=== PATIENT | female | born 1955 | race Caucasian/White ===

== ENCOUNTER → 2016-09-24 | Outpatient (CLI) | payer OTHER ==
--- NOTE | 2016-09-24 12:12 | REPMRS ---
Patient History The patient states she had a clinical breast exam in 07/2016. Patient is postmenopausal. Family history of colorectal cancer in paternal uncle at age 50 or over. Digital Woman Screen Mammo: September 24, 2016 - Exam #: [id number] Bilateral CC and MLO view(s) were taken. Technologist: Camila Dallas Technologist Prior study comparison: July 02, 2015, bilateral digital mammo screening bilat, performed at [facility]. May 22, 2014, bilateral digital mammo screening bilat, performed at [facility]. May 19, 2013, bilateral digital mammo screening bilat, performed at [facility]. FINDINGS: There are scattered fibroglandular densities. There has been no change in the appearance of the mammogram from the prior studies. There is a mild amount of scattered fibroglandular density which is fairly symmetric. There is no interval development of dominant mass, architectural distortion, or clustered microcalcification suggestive of malignancy. ASSESSMENT: BI-RADS/ACR category 1 mammogram. Negative. Recommendation Routine screening mammogram in 1 year (for women over age 40). This mammogram was interpreted with the aid of an FDA-approved computer-aided dectection system. Electronically Signed By: Cheko Ham MD 09/24/16 [id number]
== END ==
LOC: M WHC 11:11
PROVIDERS: ATTEND Nurse Practitioner Adult Health
DX: Z12.31 Encounter for screening mammogram for malignant neoplasm of breast (principal); Z78.0 Asymptomatic menopausal state

== ENCOUNTER → 2017-02-25 | Outpatient (CLI) | payer OTHER ==
[~2017-02-25] MED LIST: CETI10TA; CITA20TA4; CLEO300C2 PO; INVO100T; KETO0.02; METF10004; MONT10TA2; VITA1CAP40
[2017-02-25 10:38] LABS: MEAN CORPUSCULAR HEMOGLOBIN 30.3 pg (27.0-33.0); MEAN CORPUSCULAR HGB CONC 33.7 g/dl (32.0-36.5); MEAN CORPUSCULAR VOLUME 90.1 fl (80.0-96.0); WHITE BLOOD COUNT 4.5 K/mm3 (4.0-10.0)
[2017-02-25 11:12] LABS: ALBUMIN 3.6 GM/DL (3.2-5.2); ALBUMIN/GLOBULIN RATIO 1.13 (1.00-1.93); ALKALINE PHOSPHATASE 126 U/L (45-117); ALT/SGPT 30 U/L (12-78); ANION GAP 6 MEQ/L (8-16); AST/SGOT 26 U/L (15-37); BILIRUBIN,TOTAL 0.4 MG/DL (0.2-1.0); BLOOD UREA NITROGEN 9 MG/DL (7-18); CALCIUM LEVEL 8.8 MG/DL (8.5-10.1); CARBON DIOXIDE LEVEL 31 MEQ/L (21-32); CHLORIDE LEVEL 104 MEQ/L (98-107); CREATININE FOR GFR 0.71 MG/DL (0.55-1.02); GLOMERULAR FILTRATION RATE > 60.0 (>51); GLUCOSE, FASTING 171 MG/DL (70-105); POTASSIUM SERUM 3.8 MEQ/L (3.5-5.1); SODIUM LEVEL 141 MEQ/L (136-145); TOTAL PROTEIN 6.8 GM/DL (6.4-8.2)
== END ==
LOC: M LAB 09:41
PROVIDERS: ATTEND Nurse Practitioner Adult Health
DX: E11.65 Type 2 diabetes mellitus with hyperglycemia (principal); E55.9 Vitamin D deficiency, unspecified

== ENCOUNTER 2017-05-21 15:40 | Emergency (ER) | payer OTHER ==
[~2017-05-21] VITALS: Ht 157.5 cm; Wt 87.7 kg
[2017-05-21] MEDS ORDERED: MONT10TA2 (16:00)
[2017-05-21] MEDS ORDERED: CETI10TA (16:00)
[2017-05-21] MEDS ORDERED: VITA1CAP40 (16:00)
[2017-05-21] MEDS ORDERED: CITA20TA4 (16:00)
[2017-05-21] MEDS ORDERED: KETO0.02 (16:00)
[2017-05-21] MEDS ORDERED: METF10004 (16:00)
[2017-05-21] MEDS ORDERED: INVO100T (16:00)
[2017-05-21] MEDS ORDERED: CLEO300C2 PO (18:08)
--- NOTE | 2017-05-21 18:13 | REP ---
REASON: Pain and swelling. TECHNIQUE: Multiple ultrasonographic images of the deep venous structures of the right thigh were obtained from the common femoral vein to the popliteal vein along with Doppler interrogation and color flow Doppler images. FINDINGS: There is no abnormal echogenic material seen within any of the visualized deep venous structures that would suggest acute thrombosis. Coaptation is unremarkable throughout. Doppler interrogation shows an expected response to respiratory variability and augmentation. The color flow images show what appears to be a normal vascular pattern throughout. IMPRESSION: There is no ultrasonographic evidence of deep venous thrombosis involving any of the visualized deep venous structures of the right thigh, as described above. Signed by Michele Chamberlain DO 05/21/2017 07:18 P
[2017-05-21] MEDS ORDERED: CLINDAMYCIN 150 MG CAP PO ONE (18:15)
[2017-05-21 18:18] VITALS: BP 132/82
== END 2017-05-21 18:19 | disposition home or self-care (01) ==
LOC: M ED 15:40
DX: L03.115 Cellulitis of right lower limb (principal); E11.9 Type 2 diabetes mellitus without complications; F33.9 Major depressive disorder, recurrent, unspecified; Z79.01 Long term (current) use of anticoagulants; Z79.899 Other long term (current) drug therapy; Z91.018 Allergy to other foods; Z91.012 Allergy to eggs

== ENCOUNTER → 2017-08-10 | Outpatient (REF) | payer OTHER ==
[2017-08-10 18:34] LABS: ALBUMIN/GLOBULIN RATIO 1.14 (1.00-1.93); ALKALINE PHOSPHATASE 126 U/L (45-117); ALT/SGPT 30 U/L (12-78); ANION GAP 5 MEQ/L (8-16); AST/SGOT 28 U/L (7-37); BILIRUBIN,TOTAL 0.5 MG/DL (0.2-1.0); BLOOD UREA NITROGEN 11 MG/DL (7-18); CALCIUM LEVEL 8.7 MG/DL (8.5-10.1); CARBON DIOXIDE LEVEL 33 MEQ/L (21-32); CHLORIDE LEVEL 105 MEQ/L (98-107); CHOLESTEROL LEVEL 131 MG/DL (<200); CREATININE FOR GFR 0.78 MG/DL (0.55-1.02); GLOMERULAR FILTRATION RATE > 60.0 (>51); GLUCOSE, FASTING 168 MG/DL (70-105); POTASSIUM SERUM 3.4 MEQ/L (3.5-5.1); SODIUM LEVEL 143 MEQ/L (136-145); TOTAL PROTEIN 7.5 GM/DL (6.4-8.2); TRIGLYCERIDES LEVEL 169 MG/DL (<150)
== END ==
LOC: M SFHCPLAZ 15:00
PROVIDERS: ATTEND Nurse Practitioner Adult Health
DX: Z12.4 Encounter for screening for malignant neoplasm of cervix (principal); I10 Essential (primary) hypertension; E55.9 Vitamin D deficiency, unspecified; E11.65 Type 2 diabetes mellitus with hyperglycemia; E78.4 Other hyperlipidemia

== ENCOUNTER 2017-09-07 13:34 | Outpatient (CLI) | payer OTHER | END 2017-10-04 | LOC: M RAD 13:34 | DX: Z12.31 Encounter for screening mammogram for malignant neoplasm of breast (principal) | CPT/HCPCS: 77067 ==

== ENCOUNTER → 2017-10-06 | Outpatient (REF) | payer OTHER | LOC: M SFHCLERA 18:03 | DX: R50.9 Fever, unspecified (principal) ==

== ENCOUNTER → 2017-12-22 | Outpatient (CLI) | payer OTHER | LOC: M RAD 09:50 | DX: M25.571 Pain in right ankle and joints of right foot (principal) | CPT/HCPCS: 73721 ==

== ENCOUNTER → 2018-01-25 | Outpatient (REF) | payer OTHER ==
[2018-01-25 15:45] LABS: ALBUMIN 3.6 GM/DL (3.2-5.2); ALBUMIN/GLOBULIN RATIO 1.03 (1.00-1.93); ALKALINE PHOSPHATASE 165 U/L (45-117); ALT/SGPT 43 U/L (12-78); ANION GAP 5 MEQ/L (8-16); AST/SGOT 43 U/L (7-37); BILIRUBIN,TOTAL 0.7 MG/DL (0.2-1.0); BLOOD UREA NITROGEN 8 MG/DL (7-18); CALCIUM LEVEL 8.6 MG/DL (8.8-10.2); CARBON DIOXIDE LEVEL 30 MEQ/L (21-32); CHLORIDE LEVEL 106 MEQ/L (98-107); CHOLESTEROL LEVEL 114 MG/DL (<200); CHOLESTEROL RISK RATIO 3.677 (<5); CREATININE FOR GFR 0.67 MG/DL (0.55-1.30); GLOMERULAR FILTRATION RATE > 60.0 (>45); GLUCOSE, FASTING 182 MG/DL (70-100); HDL CHOLESTEROL 31 MG/DL (>40); LDL CHOLESTEROL 47.8 MG/DL (<100); NON-HDL-C 83 MG/DL; POTASSIUM SERUM 4.2 MEQ/L (3.5-5.1); SODIUM LEVEL 141 MEQ/L (136-145); TOTAL PROTEIN 7.1 GM/DL (6.4-8.2); TRIGLYCERIDES LEVEL 176 MG/DL (<150)
[2018-01-25 15:50] LABS: TOTAL 25(OH) VITAMIN D 27.6 NG/ML (30.0-100.0)
[2018-01-25 16:04] LABS: MALB URINE SIEMENS 50.1 MG/L; MAU/CREAT RATIO 9.4 MCG/MG (0.0-30.0)
== END ==
LOC: M SFHCPLAZ 10:51
DX: Z00.00 Encounter for general adult medical examination without abnormal findings (principal); E11.65 Type 2 diabetes mellitus with hyperglycemia; E55.9 Vitamin D deficiency, unspecified; E78.4 Other hyperlipidemia

== ENCOUNTER 2018-03-30 10:05 | Emergency (ER) | payer OTHER ==
[2018-03-30] MEDS: predniSONE 20 MG TAB PO (11:19)
[2018-03-30] MEDS: diphenhydrAMINE 25 MG CAP PO (11:19)
== END 2018-03-30 11:29 | disposition home or self-care (01) ==
LOC: M ED 10:05
DX: L23.9 Allergic contact dermatitis, unspecified cause (principal); L50.9 Urticaria, unspecified; Z79.82 Long term (current) use of aspirin; Z79.84 Long term (current) use of oral hypoglycemic drugs; Z79.899 Other long term (current) drug therapy; Z91.012 Allergy to eggs; Z91.018 Allergy to other foods
CPT/HCPCS: 99283

== ENCOUNTER → 2018-03-31 | Outpatient (REF) | payer OTHER ==
[2018-03-31 12:54] LABS: ESTIMATED AVERAGE GLUCOSE 194 MG/DL (60-110); HEMOGLOBIN A1c 8.4 %
== END ==
LOC: M LABDRAW1 10:07
DX: E11.9 Type 2 diabetes mellitus without complications (principal)
CPT/HCPCS: 83036

== ENCOUNTER → 2018-05-24 | Outpatient (REF) | payer OTHER ==
[2018-05-24 11:14] LABS: HEMATOCRIT 34.6 % (36.0-47.0); HEMOGLOBIN 11.1 g/dl (12.0-15.5); MEAN CORPUSCULAR HGB CONC 32.1 g/dl (32.0-36.5); MEAN CORPUSCULAR VOLUME 93.5 fl (80.0-96.0); PLATELET COUNT, AUTOMATED 103 10^3/uL (150-450); RED CELL DISTRIBUTION WIDTH 13.1 % (11.5-14.5)
[2018-05-24 11:36] LABS: ALBUMIN 3.6 GM/DL (3.2-5.2); ALBUMIN/GLOBULIN RATIO 1.13 (1.00-1.93); ALKALINE PHOSPHATASE 111 U/L (45-117); ALT/SGPT 29 U/L (12-78); ANION GAP 5 MEQ/L (8-16); AST/SGOT 31 U/L (7-37); BILIRUBIN,TOTAL 0.5 MG/DL (0.2-1.0); BLOOD UREA NITROGEN 9 MG/DL (7-18); CALCIUM LEVEL 8.9 MG/DL (8.8-10.2); CARBON DIOXIDE LEVEL 29 MEQ/L (21-32); CHLORIDE LEVEL 108 MEQ/L (98-107); CREATININE FOR GFR 0.74 MG/DL (0.55-1.30); GLOMERULAR FILTRATION RATE > 60.0 (>45); GLUCOSE, FASTING 170 MG/DL (70-100); POTASSIUM SERUM 4.3 MEQ/L (3.5-5.1); SODIUM LEVEL 142 MEQ/L (136-145); TOTAL PROTEIN 6.8 GM/DL (6.4-8.2)
[2018-05-24 11:40] LABS: ESTIMATED AVERAGE GLUCOSE 177 MG/DL (60-110); HEMOGLOBIN A1c 7.8 %
== END ==
LOC: M SFHCPLAZ 08:30
DX: E11.65 Type 2 diabetes mellitus with hyperglycemia (principal); K76.0 Fatty (change of) liver, not elsewhere classified; G47.33 Obstructive sleep apnea (adult) (pediatric)

== ENCOUNTER → 2018-10-11 | Outpatient (REF) | payer OTHER ==
[~2018-10-11] MED LIST changes: +ALOG6.25; +ASPI-222 PO; +BENA25CA4 PO; -CETI10TA; +CETI10TA PO; +CHLO125TA; -CITA20TA4; +CITA20TA4 PO; -METF10004; +METF10004 PO; -MONT10TA2; +MONT10TA2 PO; +NESI12.5 PO; +PRED20TA PO; +SIMV10TA2 PO; -VITA1CAP40; +VITA50005
[2018-10-11 15:43] LABS: HEMOGLOBIN A1c 7.8 %
== END ==
LOC: M LABDRAW1 10:45
PROVIDERS: ATTEND Orthopaedic Surgery
DX: M76.61 Achilles tendinitis, right leg (principal)

== ENCOUNTER → 2018-11-16 | Outpatient (REF) | payer OTHER ==
[~2018-11-16] MED LIST changes: +CHLO25TA PO; -CITA20TA4 PO; +CITA20TA6 PO; +NESI25TA PO; -VITA50005; +VITA50005 PO
[2018-11-16 12:00] LABS: BLOOD UREA NITROGEN 12 MG/DL (7-18); CALCIUM LEVEL 8.8 MG/DL (8.8-10.2); CARBON DIOXIDE LEVEL 28 MEQ/L (21-32); CHLORIDE LEVEL 109 MEQ/L (98-107); CREATININE FOR GFR 0.66 MG/DL (0.55-1.30); GLOMERULAR FILTRATION RATE > 60.0 (>45); GLUCOSE, FASTING 130 MG/DL (70-100); POTASSIUM SERUM 4.1 MEQ/L (3.5-5.1); SODIUM LEVEL 141 MEQ/L (136-145)
[2018-11-16 12:26] LABS: INR 1.08; PROTHROMBIN TIME 14.1 SECONDS (12.1-14.4)
[2018-11-16 12:27] LABS: PARTIAL THROMBOPLASTIN TIME 36.6 SECONDS (25.4-37.6)
[2018-11-16 12:47] LABS: HEMOGLOBIN A1c 7.2 %
[2018-11-16 13:58] LABS: HEMATOCRIT 35.4 % (36.0-47.0); HEMOGLOBIN 11.3 g/dl (12.0-15.5); MEAN CORPUSCULAR HEMOGLOBIN 29.7 pg (27.0-33.0); MEAN CORPUSCULAR HGB CONC 31.9 g/dl (32.0-36.5); MEAN CORPUSCULAR VOLUME 92.9 fl (80.0-96.0); PLATELET COUNT, AUTOMATED 109 10^3/uL (150-450); RED BLOOD COUNT 3.81 10^6/uL (4.00-5.40); WHITE BLOOD COUNT 4.3 10^3/uL (4.0-10.0)
== END ==
LOC: M LABDRAWP 09:11
PROVIDERS: ATTEND Orthopaedic Surgery
DX: Z00.00 Encounter for general adult medical examination without abnormal findings (principal)

== ENCOUNTER 2018-11-28 06:13 | Day surgery (SDC) | payer OTHER ==
[~2018-11-28] VITALS: Ht 157.5 cm; Wt 88.7 kg
[2018-11-28] VITALS (7 sets, daily range): BP systolic 116–134; BP diastolic 56–78
[~2018-11-28 06:13] MED LIST changes: +LIDOCAINE 1% MDV 20ML VIAL SQ PRN; +NS 1,000 ML IV ONE
[2018-11-28] MEDS ORDERED: dexameTHASONE 10 MG/1 ML VIAL PRES.FREE (J1100) ONE (06:14)
[2018-11-28] MEDS ORDERED: LIDOCAINE 1% MDV 20ML VIAL ONE (06:14)
[2018-11-28] MEDS ORDERED: ROPIvacaine 0.5% 30 ML INJECTION (J2795 PER 1MG) ONE (06:14)
[2018-11-28] MEDS ORDERED: ceFAZolin 2 GM/D5W 50 ML IV BAG (J0690 PER 500MG) As Ordered ONE (06:56)
[2018-11-28] MEDS ORDERED: SCOPOLAMINE 1MG TRANSDERMAL PATCH As Ordered ONE (07:00)
[2018-11-28] MEDS ORDERED: ROCURONIUM BROMIDE 50 MG/5 ML VIAL As Ordered ONE (07:13)
[2018-11-28] MEDS ORDERED: PROPOFOL 200 MG/20 ML VIAL As Ordered ONE (07:13)
[2018-11-28] MEDS ORDERED: LIDOCAINE 2% INJ 100 MG/5 ML SDV (FOR ANES.) As Ordered ONE (07:13)
[2018-11-28] MEDS ORDERED: MIDAZOLAM INJ 2 MG/2 ML VIAL (J2250) As Ordered ONE ×2 (07:14→07:21)
[2018-11-28] MEDS ORDERED: fentaNYL 100 MCG/2 ML INJECTION (J3010) As Ordered ONE ×2 (07:14→07:21)
[2018-11-28] MEDS ORDERED: SCOPOLAMINE 1MG TRANSDERMAL PATCH TOP ONE (07:15)
[2018-11-28] MEDS ORDERED: LR 1,000 ML IV ONE (07:15)
[2018-11-28] MEDS ORDERED: MIDAZOLAM INJ 2 MG/2 ML VIAL (J2250) IV ONE (07:45)
[2018-11-28] MEDS ORDERED: fentaNYL 100 MCG/2 ML INJECTION (J3010) IV ONE (07:45)
[2018-11-28] MEDS ORDERED: dexameTHASONE 4 MG/ML 1ML VIAL (J1100) As Ordered ONE (07:49)
[2018-11-28] MEDS ORDERED: ONDANSETRON 4MG/2ML VIAL (J2405) As Ordered ONE (07:49)
[2018-11-28] MEDS: ceFAZolin 2 GM/D5W 50 ML IV BAG (J0690 PER 500MG) IV ONE ×2 (07:55→08:41)
[2018-11-28] MEDS ORDERED: PHENYLEPHRINE INJ 10MG/ML VIAL (J2370) As Ordered ONE (09:09)
[2018-11-28] MEDS ORDERED: NEOSTIGMINE 10 MG/10 ML VIAL (J2710) As Ordered ONE (10:28)
[2018-11-28] MEDS ORDERED: GLYCOPYRROLATE INJ 0.2 MG/ML 2 ML VIAL As Ordered ONE (10:28)
[2018-11-28] MEDS ORDERED: ONDANSETRON 4MG/2ML VIAL (J2405) IV PRN (11:00)
[2018-11-28] MEDS ORDERED: HYDROMORPHONE HCL 0.5 MG/ 0.5 ML SYRINGE (J1170 PER 1) IV PRN (11:00)
[2018-11-28] MEDS ORDERED: PERCOCET 5MG/325MG TAB PO PRN (11:00)
[2018-11-28] MEDS ORDERED: LR 1,000 ML IV SCH (11:00)
[2018-11-28] MEDS ORDERED: fentaNYL 100 MCG/2 ML INJECTION (J3010) IV PRN (11:00)
--- NOTE | 2018-11-28 13:20 | RO ---
DATE OF SURGERY: 11/28/2018 PREOPERATIVE DIAGNOSIS: Right Achilles insertional tendinosis. POSTOPERATIVE DIAGNOSIS: Right Achilles insertional tendinosis. PROCEDURES: 1. Right Achilles debridement. 2. Excision Cali deformity. 3. Repair Achilles tendon. 4. Use of the mini C-arm. SURGEON: Kristel Mcneal MD DIRECTOR [employer]: Bridget Nieves PA-C ANESTHESIA: General endotracheal with popliteal block. ESTIMATED BLOOD LOSS (EBL): 50 mL. TOURNIQUET TIME: 111 minutes. COMPLICATIONS: None. CONDITION: Stable to recovery. IMPLANTS: Arthrex SpeedBridge. 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 She has failed conservative measures and elects for surgical treatment. The risks and benefits of surgery were discussed with the patient in detail and include but are not limited to infection, damage to nerves and blood vessels, continued pain and stiffness, need for additional procedures, tendon rupture. Informed consent was obtained in the office. DESCRIPTION OF PROCEDURE: The patient was met in the preoperative holding area, where the right lower extremity was marked as the correct operative site. She underwent a popliteal nerve block by the anesthesia team. The patient was taken to the operating room (OR), where she underwent general endotracheal anesthesia. She was placed in the prone position. Her bony prominences were well padded. A well-padded tourniquet was placed on the right upper thigh. A chlorhexidine scrub was performed to the right ankle and leg. The right lower extremity was prepped and draped in the normal sterile fashion. An official time-out was held, where the correct patient, operative site, and operative procedure were verified. After time-out was performed, and incision was marked out midline over the Achilles tendon, distally extending over the insertion on the posterior tuberosity of the calcaneus. An Esmarch tourniquet was used to exsanguinate the leg, and the tourniquet was inflated to 250 mmHg. Incision was made with a #15 blade. Dissection was made to the level of the paratenon. The paratenon was incised, and the Achilles tendon was exposed. A midline incision was made with a fresh knife in the Achilles tendon down to its insertion of the tuberosity. It was gently lifted up. There was a fairly large enthesophyte that was excised using an osteotome and rongeur. Following this, using a series of fresh #15 blades, the anterior surface of the Achilles tendon was debrided. There was moderate tendinosis near the insertion, but the midsubstance of the tendon was without any significant tendinosis. I did not have to take more than 50% of the tendon; and thus, it was made not to transfer the flexor hallucis longus (FHL) tendon. After the tendon was debrided, irrigation was performed. The C-arm was used in the lateral view to determine my level of resection for the Cali deformity. This was then excised using a #38 blade and a micro sagittal saw. The tuberosity itself was contoured with a power rasp to make sure there were no sharp edges and that both medially and laterally some bone was removed, as well. When I was happy with the shape and contour of the tuberosity, x-ray was performed, and it appeared I had taken adequate bone. Next, the Achilles Arthrex SpeedBridge was used to reattach the tendon to bone. The four holes for the SpeedBridge were marked out. The first two SwiveLocks were inserted, and the FiberTapes were drawn through both the medial and lateral aspects of the Achilles tendon. I did use a stay suture here to tie the tendon down to reapproximate the tension. Tension was further adjusted with the SpeedBridge through the distal SwiveLocks. This had good tension, and I was satisfied with the repair. There was good bite on all anchors. Following this, 0 Vicryl was used to close the split of the Achilles tendon and further reinforce the insertion itself. Copious irrigation was performed. The paratenon was closed using 3-0 Vicryl, and subcutaneous tissues were closed using 3-0 Vicryl. The skin was closed using 3-0 nylon. A sterile dressing was applied, and the patient was placed into a well-padded splint. She was transferred to the recovery room in a stable condition. PLAN: The patient will be nonweightbearing in the right lower extremity. I will see her back in 1 week for a wound check and cast placement. The cast should be in slight plantar flexion. She will then return at 3 weeks for suture removal. She will need to be nonweightbearing for 6 weeks total. She will be on aspirin for deep venous thrombosis (DVT) prophylaxis.
--- NOTE | 2018-11-28 14:22 | REP ---
Right heel: Single view. History: Right leg Achilles tendonitis. 15 seconds of fluoroscopy time is reported. Findings: A single last image hold fluoroscopically obtained spot radiograph of the calcaneus documents posterior calcaneal osteotomy. No laterality markers visible. Electronically Signed by Matteo Ham MD 11/28/2018 02:15 P
[2018-11-28] MEDS: LR 1,000 ML IV SCH ×2 (15:33→23:30)
[2018-11-28] MEDS: CEPACOL LOZENGE PO PRN (15:33)
[2018-11-28] MEDS ORDERED: POLYVINYL ALCOHOL OPHTH SOLN 15 ML(LIQUITEARS) OU PRN (15:45)
[2018-11-28] MEDS: metFORMIN (GLUCOPHAGE) 1000 MG TABLET PO SCH (17:13)
[2018-11-28] MEDS: oxyCODONE 5MG TAB PO PRN (17:19)
[2018-11-28] MEDS ORDERED: CitaloPRAM (CeleXA) 20 MG TAB PO SCH (21:00)
[2018-11-28] MEDS ORDERED: MONTELUKAST 10 MG TAB PO SCH (21:00)
[2018-11-28] MEDS ORDERED: CETIRIZINE (ZyrTEC) 10 MG TAB PO SCH (21:00)
[2018-11-29 01:34] VITALS: O2SAT 96
[2018-11-29] MEDS: oxyCODONE 5MG TAB PO PRN (01:52)
[2018-11-29 02:00] VITALS: BP 114/62
[2018-11-29 06:00] VITALS: BP 111/62
[2018-11-29] MEDS: metFORMIN (GLUCOPHAGE) 1000 MG TABLET PO SCH (08:00)
[2018-11-29] MEDS: CEPACOL LOZENGE PO PRN (08:00)
[2018-11-29] MEDS ORDERED: ENTER DRUG NAME HERE (PATIENT'S OWN MED) OU SCH (09:00)
[2018-11-29] MEDS ORDERED: SIMVASTATIN 10 MG TAB PO SCH (09:00)
[2018-11-29] MEDS ORDERED: ENTER DRUG NAME HERE (PATIENT'S OWN MED) PO SCH (09:00)
[2018-11-29 09:06] VITALS: O2SAT 97
== END 2018-11-29 12:25 | disposition home or self-care (01) ==
LOC: M SDC 06:13 → M MS5PR 13:55 → M SDC 11-29 12:25
PROVIDERS: ATTEND Orthopaedic Surgery
DX: M76.61 Achilles tendinitis, right leg (principal); E11.65 Type 2 diabetes mellitus with hyperglycemia; F32.9 Major depressive disorder, single episode, unspecified; I49.9 Cardiac arrhythmia, unspecified; E78.49 Other hyperlipidemia; R01.1 Cardiac murmur, unspecified; G47.33 Obstructive sleep apnea (adult) (pediatric); K21.9 Gastro-esophageal reflux disease without esophagitis; I87.2 Venous insufficiency (chronic) (peripheral); F34.1 Dysthymic disorder; K76.0 Fatty (change of) liver, not elsewhere classified; R06.02 Shortness of breath; M15.0 Primary generalized (osteo)arthritis; R06.83 Snoring; E66.9 Obesity, unspecified; Z68.36 Body mass index [BMI] 36.0-36.9, adult; Z91.012 Allergy to eggs; Z91.018 Allergy to other foods; Z91.048 Other nonmedicinal substance allergy status; Z79.899 Other long term (current) drug therapy; Z79.82 Long term (current) use of aspirin; Z79.84 Long term (current) use of oral hypoglycemic drugs; Z78.0 Asymptomatic menopausal state
CPT/HCPCS: 27654; 28118; 76000; 88304; 97161; 97530; C1713; J0690; J1100; J2250; J2370; J2405; J2710; J2795; J3010

== ENCOUNTER → 2020-03-27 | Outpatient (REF) | payer OTHER ==
[~2020-03-27] MED LIST changes: -ASPI-222 PO; +ASPI-527 PO; +AUGM875T28 PO; -LIDOCAINE 1% MDV 20ML VIAL SQ PRN; -MONT10TA2 PO; +MONT10TA4 PO; -NS 1,000 ML IV ONE; -SIMV10TA2 PO; +SIMV10TA21 PO
== END ==
LOC: M LAB REF 13:16
PROVIDERS: ATTEND Ophthalmology
DX: H02.831 Dermatochalasis of right upper eyelid (principal)

== ENCOUNTER → 2020-05-17 | Outpatient (CLI) | payer OTHER ==
[2020-05-17 12:01] LABS: ALBUMIN 3.6 GM/DL (3.2-5.2); ALT/SGPT 31 U/L (12-78); BILIRUBIN,TOTAL 0.9 MG/DL (0.2-1.0); BLOOD UREA NITROGEN 11 MG/DL (7-18); CARBON DIOXIDE LEVEL 29 MEQ/L (21-32); CHLORIDE LEVEL 101 MEQ/L (98-107); CHOLESTEROL LEVEL 142 MG/DL (<200); CHOLESTEROL RISK RATIO 4.057 (<5); CREATININE FOR GFR 0.74 MG/DL (0.55-1.30); GLOMERULAR FILTRATION RATE > 60.0 (>45); GLUCOSE, FASTING 334 MG/DL (70-100); HDL CHOLESTEROL 35 MG/DL (>40); LDL CHOLESTEROL 72 MG/DL (<100); NON-HDL-C 107 MG/DL; SODIUM LEVEL 136 MEQ/L (136-145); TOTAL PROTEIN 7.4 GM/DL (6.4-8.2); TRIGLYCERIDES LEVEL 174 MG/DL (<150)
[2020-05-17 12:06] LABS: TOTAL 25(OH) VITAMIN D 32.5 NG/ML (30.0-100.0)
[2020-05-17 12:15] LABS: MALB URINE SIEMENS 30.9 MG/L; MAU/CREAT RATIO 9.4 MCG/MG (0.0-30.0)
--- NOTE | 2020-05-24 06:38 | ECHO ---
DATE OF PROCEDURE: 05/17/2020 Age: 64 Gender: Female REFERRING PROVIDER: ANAHI Moon PATIENT LOCATION: Outpatient. REASON FOR STUDY: Endocarditis. 2D MEASUREMENTS: IVS 1.1 cm LV 4.5 cm LVPW 0.8 cm LA 3.9 cm Aorta 2.4 cm DOPPLER MEASUREMENT Peak velocity across the aortic valve 1.8 m/s Peak velocity across the LVOT 1.0 m/s Mitral E 0.7 Mitral A 0.8 with a ratio of 0.9 Maximum tricuspid valve velocity 2.3 m/s 2D COMMENTS: 1. Normal left ventricle size, wall thickness, and normal global left ventricle. The estimated left ventricular systolic ejection fraction is 60% to 65%. 2. Normal left atrium. Normal right atrium and right ventricle. 3. The atrial septum appeared to be normal without evidence of defect or shunt. 4. Normal aortic root. 5. No pericardial effusion seen. 6. Minimally calcified aortic valve with normal leaflet excursion. Minimally calcified mitral annulus with normal anterior mitral valve leaflet motion. Normal tricuspid valve. The pulmonic valve and proximal pulmonary artery branches were not well visualized. The inferior vena cava was not well visualized. Doppler detects trace mitral regurgitation, and mild tricuspid regurgitation. The calculated pulmonary artery systolic pressure is about 30 mmHg. Abnormal relaxation pattern was noted across the mitral valve leaflets, as well as the mitral valve annulus consistent with features of grade 1 left ventricular diastolic dysfunction. IMPRESSION: 1. Normal global left ventricular systolic function. There are some features of grade 1 left ventricular diastolic dysfunction manifested by abnormal relaxation. 2. Aortic valve sclerosis with trivial aortic stenosis, but no aortic regurgitation. 3. Mitral valve annulus calcification with trace mitral regurgitation. 4. Mild tricuspid regurgitation with probably mild pulmonary hypertension. 5. No vegetation seen in the transthoracic echocardiogram. MTDD
== END ==
LOC: M CARPUL 10:02
PROVIDERS: ATTEND Nurse Practitioner Adult Health
DX: I08.3 Combined rheumatic disorders of mitral, aortic and tricuspid valves (principal); I27.20 Pulmonary hypertension, unspecified

== ENCOUNTER → 2020-05-29 | Outpatient (CLI) | payer OTHER ==
--- NOTE | 2020-05-30 09:46 | REPMRS ---
Patient History The patient states she has not had a clinical breast exam in over a year. Family history of colorectal cancer at age 50 or over in paternal uncle. Digital Woman Screen Mammo: May 29, 2020 - Exam #: [id number] Bilateral CC and MLO view(s) were taken. Technologist: Alka Pearson, Technologist Prior study comparison: October 04, 2017, bilateral digital mammo screening bilat, performed at [facility]. September 24, 2016, digital woman screen mammo performed at [facility]. July 02, 2015, bilateral digital mammo screening bilat, performed at [facility]. FINDINGS: There are scattered fibroglandular densities. The Volpara volumetric breast density category is:B. There is a stable nodular density in the right breast laterally There has been no change in the appearance of the mammogram from the prior studies. There is a mild amount of scattered fibroglandular density which is fairly symmetric. There is no interval development of dominant mass, architectural distortion, or grouped microcalcification suggestive of malignancy. 3-D tomosynthesis shows no additional findings. Assessment: BI-RADS/ACR category 2 mammogram. Benign Findings. Recommendation Routine screening mammogram of both breasts in 1 year (for women over age 40). This patient's Lifetime Breast Cancer Risk is estimated at 5.8 %. This mammogram was interpreted with the aid of an FDA-approved computer-aided dectection system. Electronically Signed By: Cheko Ham MD 05/30/20 0937
== END ==
LOC: M WHC 15:12
PROVIDERS: ATTEND Nurse Practitioner Adult Health
DX: Z12.31 Encounter for screening mammogram for malignant neoplasm of breast (principal); Z80.0 Family history of malignant neoplasm of digestive organs

== ENCOUNTER → 2020-10-16 | Outpatient (CLI) | payer OTHER ==
[~2020-10-16] MED LIST changes: +MONT10TA10 PO; -MONT10TA4 PO
== END ==
LOC: M LABSMTC 09:48
PROVIDERS: ATTEND Anesthesiology
DX: Z01.812 Encounter for preprocedural laboratory examination (principal); Z20.822 Contact with and (suspected) exposure to COVID-19

== ENCOUNTER 2020-10-21 06:41 | Day surgery (SDC) | payer OTHER ==
[~2020-10-21] VITALS: Ht 157.5 cm; Wt 82.1 kg
[~2020-10-21 06:41] MED LIST changes: +NS 1,000 ML IV ONE
[2020-10-21] MEDS ORDERED: LIDOCAINE 2% 100MG/5ML SDV (FOR ANES.) As Ordered ONE (07:12)
[2020-10-21] MEDS ORDERED: propofoL 200 MG/20 ML VIAL As Ordered ONE (07:12)
--- NOTE | 2020-10-21 07:53 | ROOR ---
Patient Name: Nanda Avila Procedure Date: 10/21/2020 7:34 AM Date of : 1955 Age: 64 Room: [facility] Gender: Female Note Status: Finalized Procedure: Colonoscopy Indications: Screening for colorectal malignant neoplasm Providers: Shane KRAMER MD Referring MD: Lia Wilson NP Requesting Provider: Medicines: Monitored Anesthesia Care Complications: No immediate complications. Procedure: Pre-Anesthesia Assessment: - The heart rate, respiratory rate, oxygen saturations, blood pressure, adequacy of pulmonary ventilation, and response to care were monitored throughout the procedure. The Colonoscope was introduced through the anus and advanced to the terminal ileum, with identification of the appendiceal orifice and IC valve. The colonoscopy was performed without difficulty. The patient tolerated the procedure well. The quality of the bowel preparation was good. Findings: The perianal and digital rectal examinations were normal. A diminutive polyp was found in the splenic flexure. The polyp was removed with a cold snare. Resection and retrieval were complete. The exam was otherwise without abnormality on direct and retroflexion views. Impression: - One diminutive polyp at the splenic flexure, removed with a cold snare. Resected and retrieved. - The examination was otherwise normal on direct and retroflexion views. Recommendation: - Repeat colonoscopy in 5 years for surveillance. Procedure Code(s): --- Professional --- 21441, Colonoscopy, flexible; with removal of tumor(s), polyp(s), or other lesion(s) by snare technique Diagnosis Code(s): --- Professional --- Z12.11, Encounter for screening for malignant neoplasm of colon K63.5, Polyp of colon CPT copyright 2019 [employer]. All rights reserved. The codes documented in this report are preliminary and upon elevator inspector review may be revised to meet current compliance requirements. Shane Kramer MD Shane KRAMER MD 10/21/2020 7:53:50 AM Electronically signed by Shane KRAMER MD Number of Addenda: 0 Note Initiated On: 10/21/2020 7:34 AM Estimated Blood Loss: Estimated blood loss: none.
[2020-10-21 08:16] VITALS: BP 129/66
== END 2020-10-21 08:16 | disposition home or self-care (01) ==
LOC: M OPP 06:41
PROVIDERS: ATTEND Internal Medicine Gastroenterology
DX: Z12.11 Encounter for screening for malignant neoplasm of colon (principal); D12.3 Benign neoplasm of transverse colon; E78.5 Hyperlipidemia, unspecified; E11.9 Type 2 diabetes mellitus without complications; K76.0 Fatty (change of) liver, not elsewhere classified; K21.9 Gastro-esophageal reflux disease without esophagitis; F32.9 Major depressive disorder, single episode, unspecified; Z88.8 Allergy status to other drugs, medicaments and biological substances; Z91.012 Allergy to eggs; Z91.018 Allergy to other foods; Z91.09 Other allergy status, other than to drugs and biological substances; Z79.82 Long term (current) use of aspirin; Z79.84 Long term (current) use of oral hypoglycemic drugs; Z79.899 Other long term (current) drug therapy

== ENCOUNTER → 2021-01-22 | Outpatient (CLI) | payer OTHER ==
[~2021-01-22] MED LIST changes: -NS 1,000 ML IV ONE
[2021-01-22 11:52] LABS: MALB URINE SIEMENS 31.5 MG/L; MAU/CREAT RATIO 10.9 MCG/MG (0.0-30.0)
[2021-01-22 16:26] LABS: ALBUMIN 3.6 GM/DL (3.2-5.2); ALT/SGPT 36 U/L (12-78); BILIRUBIN,TOTAL 0.8 MG/DL (0.2-1.0); BLOOD UREA NITROGEN 10 MG/DL (7-18); CALCIUM LEVEL 9.2 MG/DL (8.8-10.2); CARBON DIOXIDE LEVEL 26 MEQ/L (21-32); CHLORIDE LEVEL 100 MEQ/L (98-107); CHOLESTEROL LEVEL 155 MG/DL (<200); CHOLESTEROL RISK RATIO 4.696 (<5); CREATININE FOR GFR 0.74 MG/DL (0.55-1.30); GLOMERULAR FILTRATION RATE > 60.0 (>45); GLUCOSE, FASTING 333 MG/DL (70-100); HDL CHOLESTEROL 33 MG/DL (>40); LDL CHOLESTEROL 73 MG/DL (<100); NON-HDL-C 122 MG/DL; SODIUM LEVEL 136 MEQ/L (136-145); TOTAL PROTEIN 7.4 GM/DL (6.4-8.2); TRIGLYCERIDES LEVEL 245 MG/DL (<150)
[2021-01-22 20:03] LABS: HEMOGLOBIN A1c 11.8 %
== END ==
LOC: M LAB 09:51
PROVIDERS: ATTEND Nurse Practitioner Adult Health
DX: E11.65 Type 2 diabetes mellitus with hyperglycemia (principal)

== ENCOUNTER → 2021-05-01 | Outpatient (CLI) | payer OTHER ==
[~2021-05-01] MED LIST changes: +ERGO500029 PO
[2021-05-01 19:51] LABS: ALBUMIN 3.5 GM/DL (3.2-5.2); ALT/SGPT 40 U/L (12-78); BILIRUBIN,TOTAL 0.8 MG/DL (0.2-1.0); BLOOD UREA NITROGEN 8 MG/DL (7-18); CALCIUM LEVEL 9.1 MG/DL (8.8-10.2); CARBON DIOXIDE LEVEL 28 MEQ/L (21-32); CHLORIDE LEVEL 99 MEQ/L (98-107); CREATININE FOR GFR 0.84 MG/DL (0.55-1.30); FERRITIN 33 NG/ML (8-252); GLOMERULAR FILTRATION RATE > 60.0 (>45); GLUCOSE, FASTING 351 MG/DL (70-100); HEMOGLOBIN A1c 10.7 %; IRON (FE) 44 UG/DL (50-170); MAU/CREAT RATIO 7.6 MCG/MG (0.0-30.0); PERCENT SATURATION 13.5 % (13.2-45.0); POTASSIUM SERUM 4.2 MEQ/L (3.5-5.1); SODIUM LEVEL 135 MEQ/L (136-145); TOTAL IRON BINDING CAPACITY 326 UG/DL (250-450); TOTAL PROTEIN 6.8 GM/DL (6.4-8.2)
[2021-05-01 19:52] LABS: HEMATOCRIT 37.2 % (36.0-47.0); HEMOGLOBIN 12.4 g/dl (12.0-15.5); MEAN CORPUSCULAR HGB CONC 33.3 g/dl (32.0-36.5); MEAN CORPUSCULAR VOLUME 90.1 fl (80.0-96.0); RED BLOOD COUNT 4.13 10^6/uL (4.00-5.40); WHITE BLOOD COUNT 4.6 10^3/uL (4.0-10.0)
[2021-05-01 20:42] LABS: PLATELET COUNT, AUTOMATED 90 10^3/uL (150-450)
== END ==
LOC: M PLALAB 13:46
PROVIDERS: ATTEND Nurse Practitioner Adult Health
DX: E11.65 Type 2 diabetes mellitus with hyperglycemia (principal); I10 Essential (primary) hypertension; T14.8XXA Other injury of unspecified body region, initial encounter; M54.2 Cervicalgia

== ENCOUNTER → 2021-05-09 | Outpatient (CLI) | payer OTHER ==
--- NOTE | 2021-05-09 09:23 | REP ---
INDICATION: NECK PAIN ON LT SIDE. COMPARISON: None. TECHNIQUE: Real-time sonographic evaluation of thyroid and left neck soft tissues performed. FINDINGS: Both lobes of thyroid are normal in size, right lobe measuring 4.2 x 2.1 x 1.4 cm and left lobe 3.2 x 1.3 x 0.9 cm. Multiple subcentimeter simple cysts are seen bilaterally, the largest on the right 3 mm and the largest on the left also 3 mm. No solid nodule is seen. In the left submandibular region, where there is reportedly pain, no sonographic abnormality is seen. IMPRESSION: Scattered multiple tiny benign cysts throughout both lobes of the thyroid, measuring up to 3 mm in diameter. No sonographic abnormality in the left submandibular region, at the site of pain. <Electronically signed by Kian Turcios > 05/09/21 0906
== END ==
LOC: M RAD 08:42
PROVIDERS: ATTEND Nurse Practitioner Adult Health
DX: M54.2 Cervicalgia (principal)

== ENCOUNTER 2021-07-09 11:03 | Outpatient (CLI) | payer OTHER ==
[~2021-07-09] VITALS: Ht 160 cm; Wt 84.1 kg
[~2021-07-09 11:03] MED LIST changes: +ALBUTEROL 90 MCG/ACT 8GM HFA INHALER INH PRN; +ALBUTEROL SULFATE 2.5 MG/0.5 ML INH NEB SOLN INH PRN; +CASIRIVIMAB (REGN10933) 600 MG, IMDEVIMAB (REGN10987) 600 MG in NS 250 ML IV ONE; +EPINEPHrine INJ 1 MG/ML 1ML AMP IM PRN; -MONT10TA10 PO; +MONT10TA97 PO; +NS 1,000 ML IV SCH; +diphenhydrAMINE 50MG/ML VIAL (J1200) IV PRN; +methylPREDNISolone 125MG 2ML VIAL IV PRN
[2021-07-09 11:37] VITALS: BP 133/64
[2021-07-09 12:07] VITALS: BP 111/58
[2021-07-09 12:37] VITALS: BP 109/55
[2021-07-09 13:37] VITALS: BP 107/59
[2021-08-04] MEDS ORDERED: KETO0.02 OU (13:50)
[2021-08-04] MEDS ORDERED: ALBU8.5H INH (13:50)
[2021-08-04] MEDS ORDERED: ASPI1TAB22 PO (13:50)
[2021-08-04] MEDS ORDERED: NYST1POW9 (13:50)
[2021-08-04] MEDS ORDERED: NASA1SPR NARES (13:50)
[2021-08-04] MEDS ORDERED: POLYOPD OP (13:50)
[2021-08-04] MEDS ORDERED: FLUTISP (13:50)
== END 2021-07-09 13:37 | disposition home or self-care (01) ==
LOC: M OPCLI4PR 11:03
PROVIDERS: ATTEND Nurse Practitioner Adult Health
DX: U07.1 COVID-19 (principal); Z88.6 Allergy status to analgesic agent; Z91.012 Allergy to eggs; Z91.048 Other nonmedicinal substance allergy status

== ENCOUNTER 2021-07-15 16:30 | Emergency (ER) | payer OTHER ==
[~2021-07-15] VITALS: Ht 158.8 cm; Wt 83.0 kg
[~2021-07-15 16:30] MED LIST changes: -ALBUTEROL 90 MCG/ACT 8GM HFA INHALER INH PRN; -ALBUTEROL SULFATE 2.5 MG/0.5 ML INH NEB SOLN INH PRN; -CASIRIVIMAB (REGN10933) 600 MG, IMDEVIMAB (REGN10987) 600 MG in NS 250 ML IV ONE; -EPINEPHrine INJ 1 MG/ML 1ML AMP IM PRN; -NS 1,000 ML IV SCH; -diphenhydrAMINE 50MG/ML VIAL (J1200) IV PRN; -methylPREDNISolone 125MG 2ML VIAL IV PRN
[2021-07-15] MEDS ORDERED: CHLO125TA PO (16:42)
[2021-07-15] MEDS ORDERED: ALOG25TA (16:42)
[2021-07-15] MEDS ORDERED: GLIP5TAB20 PO (16:42)
[2021-07-15] MEDS ORDERED: LORA-674 PO (16:42)
[2021-07-15 22:32] VITALS: BP 123/60
[2021-07-16] MEDS ORDERED: diazePAM 10MG/2ML SYRINGE (J3360 PER 5MG) IM ONE (04:25)
[2021-07-16 04:27] LABS: BASO % 0.3 % (0.0-1.0); EOS # 0.1 10^3/uL (0.0-0.5); EOS % 1.9 % (0.0-3.0); HEMATOCRIT 40.3 % (36.0-47.0); HEMOGLOBIN 13.3 g/dl (12.0-15.5); LYMPH # 1.7 10^3/uL (1.5-5.0); LYMPH % 27.5 % (24.0-44.0); MEAN CORPUSCULAR VOLUME 87.8 fl (80.0-96.0); MONO # 0.5 10^3/uL (0.0-0.8); MONO % 7.4 % (2.0-8.0); NEUTROPHILS % 62.6 % (36.0-66.0); PLATELET COUNT, AUTOMATED 125 10^3/uL (150-450); RED BLOOD COUNT 4.59 10^6/uL (4.00-5.40); WHITE BLOOD COUNT 6.3 10^3/uL (4.0-10.0)
[2021-07-16 04:53] LABS: ALBUMIN 3.5 GM/DL (3.2-5.2); BILIRUBIN,DIRECT 0.2 MG/DL (0.0-0.2); BILIRUBIN,TOTAL 0.7 MG/DL (0.2-1.0); TOTAL PROTEIN 7.5 GM/DL (6.4-8.2)
[2021-07-16] MEDS ORDERED: CYCL-707 PO (05:57)
[2021-08-04] MEDS ORDERED: ASPI1TAB22 PO (13:50)
[2021-08-04] MEDS ORDERED: NYST1POW9 (13:50)
[2021-08-04] MEDS ORDERED: FLUTISP (13:50)
[2021-08-04] MEDS ORDERED: POLYOPD OP (13:50)
[2021-08-04] MEDS ORDERED: NASA1SPR NARES (13:50)
[2021-08-04] MEDS ORDERED: ALBU8.5H INH (13:50)
[2021-08-04] MEDS ORDERED: KETO0.02 OU (13:50)
== END 2021-07-16 06:50 | disposition home or self-care (01) ==
LOC: M ED 16:30
DX: S29.012A Strain of muscle and tendon of back wall of thorax, initial encounter (principal); X58.XXXA Exposure to other specified factors, initial encounter; Y92.89 Other specified places as the place of occurrence of the external cause; M62.830 Muscle spasm of back; E11.9 Type 2 diabetes mellitus without complications; I10 Essential (primary) hypertension; F33.9 Major depressive disorder, recurrent, unspecified; E78.5 Hyperlipidemia, unspecified; Z88.8 Allergy status to other drugs, medicaments and biological substances; Z91.012 Allergy to eggs; Z91.018 Allergy to other foods; Z91.048 Other nonmedicinal substance allergy status; Z79.899 Other long term (current) drug therapy; Z79.84 Long term (current) use of oral hypoglycemic drugs
CPT/HCPCS: 36415; 71045; 80047; 80076; 85025; 93005; 96372; 99284; J3360

== ENCOUNTER → 2021-07-31 | Outpatient (CLI) | payer OTHER ==
[~2021-07-31] MED LIST changes: +ALBU8.5H INH; +ALOG25TA; +ASPI1TAB22 PO; +CHLO125TA PO; +CYCL-707 PO; +FLUTISP; +GLIP5TAB20 PO; +KETO0.02 OU; +LORA-674 PO; +NASA1SPR NARES; +NYST1POW9; +POLYOPD OP
== END ==
LOC: M PLAIMG 12:18
PROVIDERS: ATTEND Nurse Practitioner Adult Health
DX: R07.1 Chest pain on breathing (principal); U07.1 COVID-19

== ENCOUNTER → 2021-08-25 | Outpatient (CLI) | payer OTHER ==
[2021-08-25 14:38] LABS: HEMOGLOBIN A1c 8.6 %
[2021-08-25 14:53] LABS: ALBUMIN 3.7 GM/DL (3.2-5.2); ALT/SGPT 35 U/L (12-78); BILIRUBIN,TOTAL 0.8 MG/DL (0.2-1.0); BLOOD UREA NITROGEN 12 MG/DL (7-18); CALCIUM LEVEL 9.4 MG/DL (8.8-10.2); CARBON DIOXIDE LEVEL 30 MEQ/L (21-32); CHLORIDE LEVEL 103 MEQ/L (98-107); CREATININE FOR GFR 0.74 MG/DL (0.55-1.30); GLOMERULAR FILTRATION RATE > 60.0 (>45); GLUCOSE, FASTING 224 MG/DL (70-100); POTASSIUM SERUM 4.1 MEQ/L (3.5-5.1); SODIUM LEVEL 139 MEQ/L (136-145); TOTAL PROTEIN 7.6 GM/DL (6.4-8.2)
[2021-08-25 15:02] LABS: TOTAL 25(OH) VITAMIN D 28.8 NG/ML (30.0-100.0)
== END ==
LOC: M PLALAB 11:06
PROVIDERS: ATTEND Nurse Practitioner Adult Health
DX: E11.65 Type 2 diabetes mellitus with hyperglycemia (principal); E55.9 Vitamin D deficiency, unspecified; I10 Essential (primary) hypertension

== ENCOUNTER → 2021-09-02 | Outpatient (CLI) | payer OTHER | LOC: M RAD 09:12 | PROVIDERS: ATTEND Internal Medicine Hematology & Oncology | DX: R16.1 Splenomegaly, not elsewhere classified (principal); K80.20 Calculus of gallbladder without cholecystitis without obstruction; D69.6 Thrombocytopenia, unspecified ==

== ENCOUNTER → 2021-09-29 | Outpatient (CLI) | payer OTHER | LOC: M WHC 13:20 | PROVIDERS: ATTEND Nurse Practitioner Adult Health | DX: Z12.31 Encounter for screening mammogram for malignant neoplasm of breast (principal) ==

== ENCOUNTER 2021-10-03 14:44 | Emergency (ER) | payer OTHER ==
[~2021-10-03] VITALS: Ht 170.2 cm; Wt 84.9 kg
[2021-10-03] MEDS ORDERED: ACETAMINOPHEN 325 MG TAB PO ONE (18:20)
[2021-10-03 18:53] LABS: BASO % 0.6 % (0.0-1.0); EOS # 0.2 10^3/uL (0.0-0.5); EOS % 2.5 % (0.0-3.0); HEMATOCRIT 38.4 % (36.0-47.0); LYMPH % 28.1 % (24.0-44.0); MEAN CORPUSCULAR HEMOGLOBIN 30.4 pg (27.0-33.0); MEAN CORPUSCULAR HGB CONC 33.9 g/dl (32.0-36.5); MEAN CORPUSCULAR VOLUME 89.7 fl (80.0-96.0); MONO # 0.5 10^3/uL (0.0-0.8); MONO % 7.1 % (2.0-8.0); NEUTROPHILS # 4.4 10^3/uL (1.5-8.5); NEUTROPHILS % 61.4 % (36.0-66.0); PLATELET COUNT, AUTOMATED 116 10^3/uL (150-450); RED BLOOD COUNT 4.28 10^6/uL (4.00-5.40); WHITE BLOOD COUNT 7.2 10^3/uL (4.0-10.0)
[2021-10-03 19:13] LABS: BLOOD UREA NITROGEN 8 MG/DL (7-18); C REACTIVE PROTEIN QUANTITATIV 0.57 MG/DL (0.00-0.30); CALCIUM LEVEL 8.9 MG/DL (8.8-10.2); CARBON DIOXIDE LEVEL 26 MEQ/L (21-32); CHLORIDE LEVEL 106 MEQ/L (98-107); GLOMERULAR FILTRATION RATE > 60.0 (>45); GLUCOSE, FASTING 149 MG/DL (70-100); POTASSIUM SERUM 3.9 MEQ/L (3.5-5.1); SODIUM LEVEL 139 MEQ/L (136-145)
[2021-10-03 19:48] LABS: ERYTHROCYTE SEDIMENTATION RATE 29 mm/hr (0-30)
[2021-10-03] MEDS ORDERED: dexameTHASONE 4 MG/ML 1ML VIAL (J1100 PER 1MG) IV ONE (20:15)
[2021-10-03] MEDS ORDERED: diphenhydrAMINE 50MG/ML VIAL (J1200) IV ONE (20:15)
[2021-10-03 21:26] VITALS: BP 115/58
== END 2021-10-03 21:27 | disposition home or self-care (01) ==
LOC: M ED 14:44
DX: R51.9 Headache, unspecified (principal); E11.9 Type 2 diabetes mellitus without complications; I10 Essential (primary) hypertension; E78.5 Hyperlipidemia, unspecified; D69.9 Hemorrhagic condition, unspecified; G47.33 Obstructive sleep apnea (adult) (pediatric); Z79.899 Other long term (current) drug therapy; Z79.84 Long term (current) use of oral hypoglycemic drugs; Z91.012 Allergy to eggs; Z91.018 Allergy to other foods; Z91.048 Other nonmedicinal substance allergy status; Z88.8 Allergy status to other drugs, medicaments and biological substances
CPT/HCPCS: 36415; 70450; 80048; 85025; 85652; 86140; 96374; 96375; 99284; J1100; J1200

== ENCOUNTER → 2021-10-13 | Outpatient (CLI) | payer OTHER ==
[~2021-10-13] MED LIST changes: +LIDOCAINE 1% MDV 20ML VIAL As Ordered ONE
[2021-10-13 13:18] LABS: BASO % 0.6 % (0.0-1.0); EOS # 0.1 10^3/uL (0.0-0.5); EOS % 2.2 % (0.0-3.0); HEMATOCRIT 36.1 % (36.0-47.0); HEMOGLOBIN 12.1 g/dl (12.0-15.5); LYMPH # 1.7 10^3/uL (1.5-5.0); LYMPH % 30.7 % (24.0-44.0); MEAN CORPUSCULAR HEMOGLOBIN 30.3 pg (27.0-33.0); MEAN CORPUSCULAR HGB CONC 33.5 g/dl (32.0-36.5); MEAN CORPUSCULAR VOLUME 90.3 fl (80.0-96.0); MONO # 0.4 10^3/uL (0.0-0.8); MONO % 7.5 % (2.0-8.0); NEUTROPHILS # 3.2 10^3/uL (1.5-8.5); NEUTROPHILS % 58.4 % (36.0-66.0); PLATELET COUNT, AUTOMATED 103 10^3/uL (150-450); WHITE BLOOD COUNT 5.4 10^3/uL (4.0-10.0)
[2021-10-13 14:45] VITALS: BP 110/59
== END ==
LOC: M IRPRO 12:09
PROVIDERS: ATTEND Internal Medicine Medical Oncology
DX: D69.6 Thrombocytopenia, unspecified (principal)

== ENCOUNTER → 2021-11-26 | Outpatient (CLI) | payer OTHER ==
[~2021-11-26] MED LIST changes: -LIDOCAINE 1% MDV 20ML VIAL As Ordered ONE; +PROHANCE 279.3MG/ML 15ML VIAL As Ordered ONE; +PROHANCE 279.3MG/ML 5ML VIAL As Ordered ONE
== END ==
LOC: M RAD 14:30
PROVIDERS: ATTEND Internal Medicine Medical Oncology
DX: R16.1 Splenomegaly, not elsewhere classified (principal); K76.0 Fatty (change of) liver, not elsewhere classified
CPT/HCPCS: 74183; A9576

== ENCOUNTER → 2022-01-19 | Outpatient (CLI) | payer OTHER ==
[~2022-01-19] MED LIST changes: -PROHANCE 279.3MG/ML 15ML VIAL As Ordered ONE; -PROHANCE 279.3MG/ML 5ML VIAL As Ordered ONE
[2022-01-19 17:43] LABS: ALBUMIN 3.7 GM/DL (3.2-5.2); ALT/SGPT 32 U/L (12-78); BILIRUBIN,TOTAL 0.9 MG/DL (0.2-1.0); BLOOD UREA NITROGEN 9 MG/DL (7-18); CALCIUM LEVEL 8.9 MG/DL (8.8-10.2); CARBON DIOXIDE LEVEL 30 MEQ/L (21-32); CHLORIDE LEVEL 102 MEQ/L (98-107); CREATININE FOR GFR 0.76 MG/DL (0.55-1.30); GLOMERULAR FILTRATION RATE > 60.0 (>45); GLUCOSE, FASTING 128 MG/DL (70-100); POTASSIUM SERUM 3.5 MEQ/L (3.5-5.1); SODIUM LEVEL 137 MEQ/L (136-145)
[2022-01-19 17:50] LABS: TOTAL 25(OH) VITAMIN D 70.1 NG/ML (30.0-100.0)
[2022-01-19 18:52] LABS: HEMOGLOBIN A1c 7.9 %
== END ==
LOC: M PLALAB 15:18
PROVIDERS: ATTEND Nurse Practitioner Adult Health
DX: E11.65 Type 2 diabetes mellitus with hyperglycemia (principal)

== ENCOUNTER 2022-02-23 19:25 | Emergency (ER) | payer OTHER ==
[~2022-02-23] VITALS: Ht 157.5 cm; Wt 84.1 kg
[2022-02-23 19:26] VITALS: BP 126/60
[2022-02-23] MEDS ORDERED: ALOG25TA (20:06)
== END 2022-02-23 22:32 | disposition left against medical advice (07) ==
LOC: M ED 19:25
DX: Z53.29 Procedure and treatment not carried out because of patient's decision for other reasons (principal)

== ENCOUNTER 2022-02-24 17:36 | Emergency (ER) | payer OTHER ==
[~2022-02-24] VITALS: Ht 157.5 cm; Wt 84.1 kg
[2022-02-24 20:55] VITALS: BP 110/59
== END 2022-02-24 20:59 | disposition home or self-care (01) ==
LOC: M ED 17:36
DX: S09.90XA Unspecified injury of head, initial encounter (principal); S80.12XA Contusion of left lower leg, initial encounter; W01.0XXA Fall on same level from slipping, tripping and stumbling without subsequent striking against object, initial encounter; Y92.018 Other place in single-family (private) house as the place of occurrence of the external cause; I10 Essential (primary) hypertension; E11.9 Type 2 diabetes mellitus without complications; E78.00 Pure hypercholesterolemia, unspecified; F32.A Depression, unspecified; Z79.899 Other long term (current) drug therapy; Z79.84 Long term (current) use of oral hypoglycemic drugs; Z88.8 Allergy status to other drugs, medicaments and biological substances; Z91.012 Allergy to eggs; Z91.018 Allergy to other foods; Z91.048 Other nonmedicinal substance allergy status

== ENCOUNTER → 2022-03-04 | Outpatient (CLI) | payer OTHER | LOC: M WHC 09:38 | PROVIDERS: ATTEND Nurse Practitioner Adult Health | DX: M79.662 Pain in left lower leg (principal) ==

== ENCOUNTER → 2022-03-04 | Outpatient (CLI) | payer OTHER | LOC: M PLAIMG 13:17 | PROVIDERS: ATTEND Nurse Practitioner Adult Health | DX: S00.93XD Contusion of unspecified part of head, subsequent encounter (principal); W19.XXXD Unspecified fall, subsequent encounter; Y92.89 Other specified places as the place of occurrence of the external cause ==

== ENCOUNTER → 2022-04-17 | Outpatient (REF) | payer OTHER ==
[2022-04-17 14:59] LABS: HEMOGLOBIN A1c 8.2 %
[2022-04-17 15:15] LABS: ALBUMIN 3.4 GM/DL (3.2-5.2); ALT/SGPT 30 U/L (12-78); BILIRUBIN,TOTAL 0.7 MG/DL (0.2-1.0); BLOOD UREA NITROGEN 5 MG/DL (7-18); CALCIUM LEVEL 9.5 MG/DL (8.8-10.2); CARBON DIOXIDE LEVEL 29 MEQ/L (21-32); CHLORIDE LEVEL 102 MEQ/L (98-107); CREATININE FOR GFR 0.67 MG/DL (0.55-1.30); GLOMERULAR FILTRATION RATE > 60.0 (>45); GLUCOSE, FASTING 172 MG/DL (70-100); MALB URINE SIEMENS 12.1 MG/L; MAU/CREAT RATIO 3.5 MCG/MG (0.0-30.0); POTASSIUM SERUM 3.3 MEQ/L (3.5-5.1); SODIUM LEVEL 137 MEQ/L (136-145)
[2022-04-17 15:54] LABS: TOTAL 25(OH) VITAMIN D 50.9 NG/ML (30.0-100.0)
== END ==
LOC: M SFHCPLAZ 14:00
PROVIDERS: ATTEND Nurse Practitioner Adult Health
DX: E11.65 Type 2 diabetes mellitus with hyperglycemia (principal); I10 Essential (primary) hypertension; E55.9 Vitamin D deficiency, unspecified

== ENCOUNTER → 2022-05-02 | Outpatient (CLI) | payer OTHER | LOC: M RAD 12:18 | PROVIDERS: ATTEND Orthopaedic Surgery | DX: S80.12XA Contusion of left lower leg, initial encounter (principal) ==

== ENCOUNTER → 2022-06-20 | Outpatient (CLI) | payer OTHER ==
[2022-06-20 13:09] LABS: ALBUMIN 3.4 GM/DL (3.2-5.2); ALT/SGPT 27 U/L (12-78); BILIRUBIN,DIRECT 0.2 MG/DL (0.0-0.2); BILIRUBIN,TOTAL 0.6 MG/DL (0.2-1.0); IRON (FE) 45 UG/DL (50-170); PERCENT SATURATION 13.3 % (13.2-45.0); TOTAL IRON BINDING CAPACITY 338 UG/DL (250-450); TOTAL PROTEIN 6.9 GM/DL (6.4-8.2)
[2022-06-20 13:20] LABS: INR 1.14; PROTHROMBIN TIME 14.8 SECONDS (12.5-14.5)
[2022-06-22 09:39] LABS: HEPATITIS B CORE ANTIBODY IGM NEGATIVE (NEGATIVE); HEPATITIS B SURFACE ANTIGEN NEGATIVE (NEGATIVE)
== END ==
LOC: M LAB 11:52
PROVIDERS: ATTEND Internal Medicine Gastroenterology
DX: R74.8 Abnormal levels of other serum enzymes (principal)

== ENCOUNTER → 2022-06-24 | Outpatient (CLI) | payer OTHER ==
[2022-06-24 16:12] LABS: ALBUMIN 3.5 GM/DL (3.2-5.2); ALT/SGPT 28 U/L (12-78); BILIRUBIN,TOTAL 0.9 MG/DL (0.2-1.0); BLOOD UREA NITROGEN 6 MG/DL (7-18); CALCIUM LEVEL 8.8 MG/DL (8.8-10.2); CARBON DIOXIDE LEVEL 29 MEQ/L (21-32); CHLORIDE LEVEL 103 MEQ/L (98-107); CHOLESTEROL LEVEL 116 MG/DL (<200); CHOLESTEROL RISK RATIO 3.222 (<5); CREATININE FOR GFR 0.71 MG/DL (0.55-1.30); GLOMERULAR FILTRATION RATE > 60.0 (>45); GLUCOSE, FASTING 142 MG/DL (70-100); HDL CHOLESTEROL 36 MG/DL (>40); LDL CHOLESTEROL 57 MG/DL (<100); NON-HDL-C 80 MG/DL; POTASSIUM SERUM 3.8 MEQ/L (3.5-5.1); SODIUM LEVEL 138 MEQ/L (136-145); TOTAL PROTEIN 7.3 GM/DL (6.4-8.2); TRIGLYCERIDES LEVEL 115 MG/DL (<150)
[2022-06-24 21:44] LABS: HEMOGLOBIN A1c 9.2 %
== END ==
LOC: M PLALAB 12:50
PROVIDERS: ATTEND Nurse Practitioner Adult Health
DX: E11.65 Type 2 diabetes mellitus with hyperglycemia (principal); Z13.220 Encounter for screening for lipoid disorders

== ENCOUNTER → 2022-10-29 | Outpatient (REF) | payer OTHER ==
[~2022-10-29] MED LIST changes: +POTA1TAB14
[2022-10-29 12:23] LABS: ALBUMIN 3.5 G/DL (3.2-5.2); ALKALINE PHOSPHATASE 133 U/L (46-116); ALT/SGPT 24 U/L (7.0-40); AST/SGOT 33 U/L (<34); BILIRUBIN,TOTAL 0.7 MG/DL (0.3-1.2); BLOOD UREA NITROGEN 12 MG/DL (9-23); CALCIUM LEVEL 9.1 MG/DL (8.3-10.6); CARBON DIOXIDE LEVEL 30 MMOL/L (20-31); CHLORIDE LEVEL 101 MMOL/L (98-107); CHOLESTEROL LEVEL 120 MG/DL (<200); CHOLESTEROL RISK RATIO 3.25 (<5); CREATININE FOR GFR 0.59 MG/DL (0.55-1.30); GLOMERULAR FILTRATION RATE > 60.0 (>45); GLUCOSE, FASTING 208 MG/DL (74-106); HDL CHOLESTEROL 36.9 MG/DL (>40); LDL CHOLESTEROL 55.7 MG/DL (<100); NON-HDL-C 83.1 MG/DL; POTASSIUM SERUM 3.6 MMOL/L (3.5-5.1); SODIUM LEVEL 137 MMOL/L (136-145); TOTAL PROTEIN 6.8 G/DL (5.7-8.2); TRIGLYCERIDES LEVEL 137 MG/DL (<150)
[2022-10-29 12:25] LABS: THYROID STIMULATING HORMONE 1.498 uIU/ML (0.55-4.78)
[2022-10-29 13:37] LABS: HEMOGLOBIN A1c 8.6 % (4.0-6.0)
== END ==
LOC: M LAB REF 11:11
PROVIDERS: ATTEND Nurse Practitioner Adult Health
DX: E11.65 Type 2 diabetes mellitus with hyperglycemia (principal); Z13.220 Encounter for screening for lipoid disorders

== ENCOUNTER → 2022-12-16 | Outpatient (CLI) | payer MEDICARE, OTHER ==
[~2022-12-16] MED LIST changes: +ARTIDRO4 OP; +ARTIDRO4 OU; +CHOL100013 PO; +CITA20TA7 PO; +FLUT50SP17; -FLUTISP; -KETO0.02; -KETO0.02 OU; +KETO5DRO33; +KETO5DRO33 OU; +NASA1SPR; +NYST1POW9 TOP; +OLOP5DRO6 OU; -POLYOPD OP; +POTA-298; +POTA-298 PO; -POTA1TAB14; +ROLLMIS8 XX; +STEG5TAB PO
== END ==
LOC: M WHC 10:12
PROVIDERS: ATTEND Nurse Practitioner Adult Health
DX: Z12.31 Encounter for screening mammogram for malignant neoplasm of breast (principal)

== ENCOUNTER 2022-12-22 16:31 | Observation (INO) | payer MEDICARE, OTHER ==
[~2022-12-22] VITALS: Ht 157.5 cm; Wt 72.9 kg
[~2022-12-22 16:31] MED LIST changes: -ARTIDRO4 OU; -CHOL100013 PO; -CITA20TA7 PO; -NASA1SPR; -NYST1POW9 TOP; -OLOP5DRO6 OU; -POTA-298 PO; -ROLLMIS8 XX; -STEG5TAB PO
[2022-12-22] MEDS ORDERED: ACETAMINOPHEN TAB 650MG DOSE (2X325MG) PO ONE (18:00)
[2022-12-22] MEDS ORDERED: ROLLMIS8 XX (20:43)
[2022-12-22] MEDS ORDERED: INSULIN LISPRO (NovoLOG) PER UNIT SC SCH (21:00)
[2022-12-22] MEDS: OLOPATADINE 0.1% OPHTH SOL 5ML(PATANOL) OU SCH (21:00)
[2022-12-22] MEDS ORDERED: MONTELUKAST 10 MG TAB PO SCH (21:00)
[2022-12-22] MEDS ORDERED: LORATADINE 10 MG TAB PO SCH (21:00)
[2022-12-22] MEDS ORDERED: SIMVASTATIN 10 MG TAB PO SCH (21:00)
[2022-12-22] MEDS ORDERED: GLUCAGON INJ 1MG VIAL SC PRN (22:35)
[2022-12-22] MEDS ORDERED: DEXTROSE 50% 50ML SYRINGE IV PRN (22:35)
[2022-12-22] MEDS ORDERED: ACETAMINOPH W/CODEINE #3 TAB UD PO ONE (22:35)
[2022-12-22] MEDS ORDERED: GLUCOSE 4GM CHEW TABLET PO PRN (22:35)
[2022-12-22] MEDS ORDERED: STEG5TAB PO (22:53)
[2022-12-22] MEDS ORDERED: CITA20TA7 PO (22:53)
[2022-12-22] MEDS ORDERED: ARTIDRO4 OU (22:53)
[2022-12-22] MEDS ORDERED: CHLO25TA PO (22:53)
[2022-12-22] MEDS ORDERED: NESI25TA PO (22:53)
[2022-12-22] MEDS ORDERED: CHOL100013 PO (22:53)
[2022-12-22] MEDS ORDERED: OLOP5DRO6 OU (22:53)
[2022-12-22] MEDS ORDERED: GLIP5TAB20 PO (23:01)
[2022-12-22] MEDS ORDERED: POTA-298 PO (23:01)
[2022-12-22] MEDS ORDERED: NYST1POW9 TOP (23:01)
[2022-12-22] MEDS ORDERED: LORA-674 PO (23:01)
[2022-12-22] MEDS ORDERED: MONT10TA97 PO (23:01)
[2022-12-22] MEDS ORDERED: SIMV10TA21 PO (23:01)
[2022-12-22] MEDS ORDERED: NASA1SPR (23:01)
[2022-12-22] MEDS ORDERED: HOME MED LIST COMPLETE! XX SCH (23:05)
[2022-12-22] MEDS ORDERED: POLYVINYL ALCOHOL OPHTH SOLN 15ML (LIQUITEARS) OU PRN (23:15)
[2022-12-22 23:50] VITALS: BP 116/59
[2022-12-23 00:12] LABS: BLOOD UREA NITROGEN 10 MG/DL (9-23); CALCIUM LEVEL 9.1 MG/DL (8.3-10.6); CARBON DIOXIDE LEVEL 28 MMOL/L (20-31); CHLORIDE LEVEL 105 MMOL/L (98-107); CREATININE FOR GFR 0.77 MG/DL (0.55-1.30); GLOMERULAR FILTRATION RATE > 60.0 (>45); GLUCOSE, FASTING 198 MG/DL (74-106); POTASSIUM SERUM 3.2 MMOL/L (3.5-5.1); SODIUM LEVEL 138 MMOL/L (136-145)
[2022-12-23 00:17] LABS: BASO % 0.6 % (0.0-1.0); EOS # 0.2 10^3/uL (0.0-0.5); EOS % 2.2 % (0.0-3.0); HEMATOCRIT 36.7 % (36.0-47.0); HEMOGLOBIN 11.9 g/dl (12.0-15.5); LYMPH # 1.9 10^3/uL (1.5-5.0); LYMPH % 27.8 % (24.0-44.0); MEAN CORPUSCULAR HEMOGLOBIN 29.2 pg (27.0-33.0); MEAN CORPUSCULAR HGB CONC 32.4 g/dl (32.0-36.5); MONO # 0.5 10^3/uL (0.0-0.8); MONO % 7.6 % (2.0-8.0); NEUTROPHILS # 4.2 10^3/uL (1.5-8.5); NEUTROPHILS % 60.9 % (36.0-66.0); PLATELET COUNT, AUTOMATED 113 10^3/uL (150-450); RED BLOOD COUNT 4.08 10^6/uL (4.00-5.40); WHITE BLOOD COUNT 6.9 10^3/uL (4.0-10.0)
[2022-12-23] MEDS ORDERED: POTASSIUM CHLORIDE 10MEQ SR TABLET PO ONE (00:20)
[2022-12-23] MEDS: ACETAMINOPHEN TAB 650MG DOSE (2X325MG) PO PRN ×2 (01:13→08:35)
[2022-12-23 06:00] VITALS: BP 118/55
[2022-12-23] MEDS: INSULIN LISPRO (NovoLOG) PER UNIT SC SCH ×2 (08:33→12:00)
[2022-12-23] MEDS: OLOPATADINE 0.1% OPHTH SOL 5ML(PATANOL) OU SCH (08:35)
[2022-12-23] MEDS ORDERED: glipiZIDE XL 5 MG TABCR PO SCH (09:00)
[2022-12-23] MEDS ORDERED: ENOXAPARIN 40MG/0.4ML SYRINGE (J1650 PER 10MG) SC SCH (09:00)
[2022-12-23] MEDS ORDERED: CitaloPRAM (CeleXA) 20 MG TAB PO SCH (09:00)
[2022-12-23] MEDS ORDERED: CHLORTHALIDONE 25 MG TAB PO SCH (09:00)
[2022-12-23] MEDS ORDERED: POTASSIUM CHLORIDE 10MEQ SR TABLET PO SCH (09:00)
[2022-12-23] MEDS ORDERED: SENO8.6T10 PO (10:49)
[2022-12-23] MEDS ORDERED: OXYC1TAB23 PO (10:49)
[2022-12-23 14:00] VITALS: BP 107/60
== END 2022-12-23 15:21 | disposition home or self-care (01) ==
LOC: M ED 16:31 → M ED INP 22:33 → INTOOBSV 22:33 → M MS4PR 23:50
PROVIDERS: ADMIT Internal Medicine; ATTEND General Practice
DX: S92.122A Displaced fracture of body of left talus, initial encounter for closed fracture (principal); W10.8XXA Fall (on) (from) other stairs and steps, initial encounter; S09.90XA Unspecified injury of head, initial encounter; S80.01XA Contusion of right knee, initial encounter; Y92.098 Other place in other non-institutional residence as the place of occurrence of the external cause; Y93.01 Activity, walking, marching and hiking; I10 Essential (primary) hypertension; E87.6 Hypokalemia; R51.9 Headache, unspecified; E78.5 Hyperlipidemia, unspecified; K21.9 Gastro-esophageal reflux disease without esophagitis; J30.9 Allergic rhinitis, unspecified; E55.9 Vitamin D deficiency, unspecified; F32.A Depression, unspecified; M25.531 Pain in right wrist; M76.61 Achilles tendinitis, right leg; Z88.8 Allergy status to other drugs, medicaments and biological substances; Z91.048 Other nonmedicinal substance allergy status; Z91.012 Allergy to eggs; Z91.018 Allergy to other foods; Z79.899 Other long term (current) drug therapy; Z79.84 Long term (current) use of oral hypoglycemic drugs
CPT/HCPCS: 36415; 70450; 72125; 73100; 73564; 73610; 73630; 80048; 85025; 87635; 96372; 97116; 97161; 97530; 99284; G0378; J1650; J1815

== ENCOUNTER → 2023-01-21 | Outpatient (CLI) | payer MEDICARE, OTHER ==
[~2023-01-21] MED LIST changes: +ARTIDRO4 OU; +CHOL100013 PO; +CITA20TA7 PO; +NASA1SPR; +NYST1POW9 TOP; +OLOP5DRO6 OU; +OXYC1TAB23 PO; +POTA-298 PO; +ROLLMIS8 XX; +SENO8.6T10 PO; +STEG5TAB PO
== END ==
LOC: M SOG 08:12
PROVIDERS: ATTEND Physician Assistant
DX: S92.102D Unspecified fracture of left talus, subsequent encounter for fracture with routine healing (principal)

== ENCOUNTER 2023-01-30 14:25 | Emergency (ER) | payer MEDICARE, OTHER ==
[~2023-01-30] VITALS: Ht 157.5 cm; Wt 81.2 kg
[2023-01-30 15:05] LABS: BASO % 0.8 % (0.0-1.0); EOS # 0.2 10^3/uL (0.0-0.5); EOS % 3.2 % (0.0-3.0); HEMATOCRIT 37.4 % (36.0-47.0); HEMOGLOBIN 12.3 g/dl (12.0-15.5); LYMPH # 1.7 10^3/uL (1.5-5.0); LYMPH % 32.1 % (24.0-44.0); MEAN CORPUSCULAR HEMOGLOBIN 29.4 pg (27.0-33.0); MEAN CORPUSCULAR HGB CONC 32.9 g/dl (32.0-36.5); MEAN CORPUSCULAR VOLUME 89.5 fl (80.0-96.0); MONO # 0.4 10^3/uL (0.0-0.8); NEUTROPHILS % 56.5 % (36.0-66.0); PLATELET COUNT, AUTOMATED 107 10^3/uL (150-450); RED BLOOD COUNT 4.18 10^6/uL (4.00-5.40); WHITE BLOOD COUNT 5.3 10^3/uL (4.0-10.0)
[2023-01-30 15:27] LABS: LIPASE 103 U/L (12-53)
[2023-01-30 15:29] LABS: CPK CREATINE PHOSPHOKINASE 55 U/L (34-145)
[2023-01-30 15:30] LABS: ALBUMIN 3.9 G/DL (3.2-5.2); ALKALINE PHOSPHATASE 148 U/L (46-116); ALT/SGPT 29 U/L (7.0-40); AST/SGOT 32 U/L (<34); BILIRUBIN,DIRECT 0.2 MG/DL (<0.4); BILIRUBIN,TOTAL 0.8 MG/DL (0.3-1.2); BLOOD UREA NITROGEN 9 MG/DL (9-23); CALCIUM LEVEL 9.7 MG/DL (8.3-10.6); CARBON DIOXIDE LEVEL 28 MMOL/L (20-31); CHLORIDE LEVEL 104 MMOL/L (98-107); CK-MB VALUE MASS 1.3 NG/ML (<3.6); CREATININE FOR GFR 0.54 MG/DL (0.55-1.30); GLOMERULAR FILTRATION RATE > 60.0 (>45); GLUCOSE, FASTING 132 MG/DL (74-106); MB/CK RELATIVE INDEX 2.36 (< OR =4); POTASSIUM SERUM 3.7 MMOL/L (3.5-5.1); SODIUM LEVEL 139 MMOL/L (136-145)
[2023-01-30] MEDS ORDERED: ISOVUE-370 76% 100ML VIAL As Ordered ONE (15:38)
[2023-01-30 16:40] LABS: CK-MB VALUE MASS < 1.0 NG/ML (<3.6)
[2023-01-30 16:47] LABS: CPK CREATINE PHOSPHOKINASE 45 U/L (34-145); MB/CK RELATIVE INDEX 2.22 (< OR =4)
[2023-01-30 18:09] VITALS: BP 113/55; TEMP 96.7; O2SAT 96
== END 2023-01-30 18:19 | disposition home or self-care (01) ==
LOC: M ED 14:25
DX: R07.9 Chest pain, unspecified (principal); E11.9 Type 2 diabetes mellitus without complications; I10 Essential (primary) hypertension; E78.5 Hyperlipidemia, unspecified; G47.30 Sleep apnea, unspecified; Z91.012 Allergy to eggs; Z91.018 Allergy to other foods; Z79.899 Other long term (current) drug therapy; Z79.84 Long term (current) use of oral hypoglycemic drugs
CPT/HCPCS: 36415; 71045; 71275; 80047; 80048; 80076; 82550; 82553; 83690; 84484; 85025; 93005; 93041; 93970; 94760; 99285; Q9967

== ENCOUNTER → 2023-02-22 | Outpatient (CLI) | payer MEDICARE, OTHER | LOC: M SOG 10:02 | PROVIDERS: ATTEND Physician Assistant | DX: S92.102A Unspecified fracture of left talus, initial encounter for closed fracture (principal); X58.XXXA Exposure to other specified factors, initial encounter; Y92.89 Other specified places as the place of occurrence of the external cause ==

== ENCOUNTER → 2023-04-29 | Outpatient (REF) | payer OTHER ==
[~2023-04-29] MED LIST changes: +INVO100T PO; +LORA-1041 PO; -LORA-674 PO
[2023-04-29 14:04] LABS: ALKALINE PHOSPHATASE 125 U/L (46-116); ALT/SGPT 30 U/L (7.0-40); AST/SGOT 32 U/L (<34); BILIRUBIN,TOTAL 1.1 MG/DL (0.3-1.2); BLOOD UREA NITROGEN 13 MG/DL (9-23); CALCIUM LEVEL 9.3 MG/DL (8.3-10.6); CARBON DIOXIDE LEVEL 30 MMOL/L (20-31); CHLORIDE LEVEL 101 MMOL/L (98-107); CHOLESTEROL LEVEL 123 MG/DL (<200); CHOLESTEROL RISK RATIO 3.38 (<5); GLOMERULAR FILTRATION RATE > 60.0 (>45); GLUCOSE, FASTING 160 MG/DL (74-106); HDL CHOLESTEROL 36.3 MG/DL (>40); LDL CHOLESTEROL 61.3 MG/DL (<100); NON-HDL-C 86.7 MG/DL; POTASSIUM SERUM 3.6 MMOL/L (3.5-5.1); SODIUM LEVEL 139 MMOL/L (136-145); TOTAL PROTEIN 7.6 G/DL (5.7-8.2); TRIGLYCERIDES LEVEL 127 MG/DL (<150)
[2023-04-29 14:05] LABS: HEMOGLOBIN A1c 8.1 % (4.0-6.0)
[2023-04-29 14:09] LABS: CREATININE, URINE 212.2 MG/DL; MAU/CREAT RATIO 3.7 MCG/MG (0.0-30.0)
== END ==
LOC: M LAB REF 13:14
PROVIDERS: ATTEND Nurse Practitioner Adult Health
DX: E11.65 Type 2 diabetes mellitus with hyperglycemia (principal); Z13.220 Encounter for screening for lipoid disorders

== ENCOUNTER → 2023-07-12 | Outpatient (CLI) | payer MEDICARE, OTHER ==
[2023-07-12 18:37] LABS: ALBUMIN 3.6 G/DL (3.2-5.2); ALKALINE PHOSPHATASE 114 U/L (46-116); ALT/SGPT 26 U/L (7.0-40); AST/SGOT 36 U/L (<34); BILIRUBIN,TOTAL 0.7 MG/DL (0.3-1.2); BLOOD UREA NITROGEN 10 MG/DL (9-23); CALCIUM LEVEL 9.8 MG/DL (8.3-10.6); CARBON DIOXIDE LEVEL 30 MMOL/L (20-31); CHLORIDE LEVEL 101 MMOL/L (98-107); CREATININE FOR GFR 0.65 MG/DL (0.55-1.30); GLOMERULAR FILTRATION RATE > 60.0 (>45); GLUCOSE, FASTING 179 MG/DL (74-106); POTASSIUM SERUM 3.6 MMOL/L (3.5-5.1); SODIUM LEVEL 139 MMOL/L (136-145); TOTAL PROTEIN 7.2 G/DL (5.7-8.2)
[2023-07-12 18:57] LABS: HEMOGLOBIN A1c 7.9 % (4.0-6.0)
== END ==
LOC: M PLALAB 16:50
PROVIDERS: ATTEND Nurse Practitioner Adult Health
DX: E11.65 Type 2 diabetes mellitus with hyperglycemia (principal)

== ENCOUNTER 2023-12-03 11:24 | Emergency (ER) | payer MEDICARE, OTHER ==
[~2023-12-03] VITALS: Ht 157.5 cm; Wt 79.3 kg
[2023-12-03 11:24] VITALS: BP 140/75; TEMP 98.2; O2SAT 97
[~2023-12-03 11:24] MED LIST changes: +FERR1TAB8 PO; -FLUT50SP17; +FLUTISP
[2023-12-03] MEDS: TETRACAINE 0.5% OPHTH SOLN 4ML OD ONE (15:15)
[2023-12-03] MEDS: FLUORESCEIN OPHTH 1MG STRIP OD ONE (15:25)
[2023-12-03] MEDS: ACETAMINOPHEN TAB 650MG DOSE (2X325MG) PO ONE (15:32)
[2023-12-03] MEDS ORDERED: ERYT5OIN25 OD (15:45)
[2023-12-03] MEDS: ERYTHROMYCIN OPHTH OINT OD ONE (15:57)
== END 2023-12-03 16:05 | disposition home or self-care (01) ==
LOC: M ED 11:24
DX: S05.01XA Injury of conjunctiva and corneal abrasion without foreign body, right eye, initial encounter (principal); X58.XXXA Exposure to other specified factors, initial encounter; Y92.9 Unspecified place or not applicable; Y93.9 Activity, unspecified; Y99.9 Unspecified external cause status; E11.9 Type 2 diabetes mellitus without complications; F32.A Depression, unspecified; I10 Essential (primary) hypertension; Z79.84 Long term (current) use of oral hypoglycemic drugs; Z79.899 Other long term (current) drug therapy; Z91.89 Other specified personal risk factors, not elsewhere classified; Z88.1 Allergy status to other antibiotic agents; Z91.018 Allergy to other foods; Z91.012 Allergy to eggs

== ENCOUNTER → 2023-12-13 | Outpatient (CLI) | payer MEDICARE, OTHER ==
[~2023-12-13] MED LIST changes: +ERYT5OIN25 OD
[2023-12-13 13:43] LABS: ALBUMIN 3.7 G/DL (3.2-5.2); ALKALINE PHOSPHATASE 147 U/L (46-116); ALT/SGPT 24 U/L (7.0-40); AST/SGOT 28 U/L (<34); BILIRUBIN,TOTAL 0.6 MG/DL (0.3-1.2); BLOOD UREA NITROGEN 13 MG/DL (9-23); CALCIUM LEVEL 9.4 MG/DL (8.3-10.6); CARBON DIOXIDE LEVEL 30 MMOL/L (20-31); CHLORIDE LEVEL 103 MMOL/L (98-107); CHOLESTEROL LEVEL 136 MG/DL (<200); CHOLESTEROL RISK RATIO 3.97 (<5); CREATININE FOR GFR 0.69 MG/DL (0.55-1.30); GLOMERULAR FILTRATION RATE > 60.0 (>45); GLUCOSE, FASTING 208 MG/DL (74-106); HDL CHOLESTEROL 34.2 MG/DL (>40); LDL CHOLESTEROL 62.2 MG/DL (<100); NON-HDL-C 101.8 MG/DL; POTASSIUM SERUM 3.7 MMOL/L (3.5-5.1); SODIUM LEVEL 138 MMOL/L (136-145); TOTAL PROTEIN 6.9 G/DL (5.7-8.2); TRIGLYCERIDES LEVEL 198 MG/DL (<150)
[2023-12-13 13:44] LABS: FREE T4 0.81 NG/DL (0.89-1.76)
[2023-12-13 13:45] LABS: THYROID STIMULATING HORMONE 2.426 uIU/ML (0.55-4.78)
[2023-12-13 13:46] LABS: TOTAL 25(OH) VITAMIN D 26.1 NG/ML (20.0-100.0)
== END ==
LOC: M PLALAB 09:26
PROVIDERS: ATTEND Nurse Practitioner Adult Health
DX: E11.65 Type 2 diabetes mellitus with hyperglycemia (principal); E55.9 Vitamin D deficiency, unspecified; E78.2 Mixed hyperlipidemia

== ENCOUNTER → 2023-12-30 | Outpatient (CLI) | payer MEDICARE, OTHER | LOC: M WHC 16:15 | PROVIDERS: ATTEND Nurse Practitioner Adult Health | DX: Z12.31 Encounter for screening mammogram for malignant neoplasm of breast (principal); R92.323 Mammographic fibroglandular density, bilateral breasts ==

== ENCOUNTER 2024-01-06 06:18 | Day surgery (SDC) | payer MEDICARE, OTHER ==
[~2024-01-06] VITALS: Ht 152.4 cm; Wt 78.9 kg
[~2024-01-06 06:18] MED LIST changes: +PHENYLEPHRINE 10% OPHTH SOL 5ML OD PRN
[2024-01-06] MEDS: ATROPINE SULFATE 1% OPHTH SOLN 2ML BTL OD SCH (07:09)
[2024-01-06] MEDS: PHENYLEPHRINE 2.5% OPHTH SOL 2ML OD SCH (07:09)
[2024-01-06] MEDS: TROPICAMIDE 1% OPHTH SOLN 15ML OD SCH (07:09)
[2024-01-06] MEDS: OFLOXACIN 0.3 % (OCUFLOX) OPTH SOL 5ML OD ONE (07:09)
[2024-01-06] MEDS: LIDOCAINE 3.5 % 1ML OPHTH TOPICAL GEL OU ONE (07:09)
[2024-01-06] MEDS ORDERED: MIDAZOLAM INJ 2MG/2ML VIAL As Ordered ONE (07:15)
[2024-01-06] MEDS ORDERED: fentaNYL 100 MCG/2 ML INJECTION As Ordered ONE (07:15)
[2024-01-06] MEDS: LIDOCAINE 1% SDV 5ML VIAL As Ordered ONE (07:54)
[2024-01-06] MEDS: BSS IRRIG/VANCO(10MG)/TOBRA(5MG)/EPINEPH(1:1000-0.5CC)500ML BAG-ORONLY As Ordered ONE (07:54)
[2024-01-06] MEDS: CEFUROXIME 1MG/0.1ML INTRACAMERAL INJ As Ordered ONE (07:54)
[2024-01-06 08:05] VITALS: BP 94/53; TEMP 98; O2SAT 93
== END 2024-01-06 08:53 | disposition home or self-care (01) ==
LOC: M SDC 06:18
PROVIDERS: ATTEND Ophthalmology
DX: E11.36 Type 2 diabetes mellitus with diabetic cataract (principal); H25.11 Age-related nuclear cataract, right eye; I10 Essential (primary) hypertension; E78.00 Pure hypercholesterolemia, unspecified; K76.0 Fatty (change of) liver, not elsewhere classified; J45.909 Unspecified asthma, uncomplicated; G47.30 Sleep apnea, unspecified; Z79.84 Long term (current) use of oral hypoglycemic drugs; Z79.899 Other long term (current) drug therapy; Z88.8 Allergy status to other drugs, medicaments and biological substances; Z91.012 Allergy to eggs; Z91.018 Allergy to other foods
CPT/HCPCS: 66984; J0697; J2250; J3010; V2632

== ENCOUNTER 2024-01-27 10:27 | Day surgery (SDC) | payer MEDICARE, OTHER ==
[~2024-01-27] VITALS: Ht 157.5 cm; Wt 80.7 kg
[~2024-01-27 10:27] MED LIST changes: +FERR325T19 PO; -PHENYLEPHRINE 10% OPHTH SOL 5ML OD PRN; +PHENYLEPHRINE 10% OPHTH SOL 5ML OS PRN
[2024-01-27] MEDS ORDERED: fentaNYL 100 MCG/2 ML INJECTION As Ordered ONE (10:32)
[2024-01-27] MEDS ORDERED: MIDAZOLAM INJ 2MG/2ML VIAL As Ordered ONE (10:33)
[2024-01-27] MEDS: LIDOCAINE 3.5 % 1ML OPHTH TOPICAL GEL OU ONE (11:00)
[2024-01-27] MEDS: OFLOXACIN 0.3 % (OCUFLOX) OPTH SOL 5ML OS ONE (11:00)
[2024-01-27] MEDS: LIDOCAINE 1% SDV 5ML VIAL As Ordered ONE (11:26)
[2024-01-27] MEDS: BSS IRRIG/VANCO(10MG)/TOBRA(5MG)/EPINEPH(1:1000-0.5CC)500ML BAG-ORONLY As Ordered ONE (11:27)
[2024-01-27] MEDS: CEFUROXIME 1MG/0.1ML INTRACAMERAL INJ As Ordered ONE (11:27)
[2024-01-27 11:30] VITALS: BP 121/64; TEMP 98; O2SAT 99
[2024-01-27] MEDS: ATROPINE SULFATE 1% OPHTH SOLN 2ML BTL OS SCH (13:04)
[2024-01-27] MEDS: PHENYLEPHRINE 2.5% OPHTH SOL 2ML OS SCH (13:04)
[2024-01-27] MEDS: TROPICAMIDE 1% OPHTH SOLN 15ML OS SCH (13:04)
== END 2024-01-27 11:48 | disposition home or self-care (01) ==
LOC: M SDC 10:27
PROVIDERS: ATTEND Ophthalmology
DX: H25.12 Age-related nuclear cataract, left eye (principal); E11.9 Type 2 diabetes mellitus without complications; G47.30 Sleep apnea, unspecified; Z91.048 Other nonmedicinal substance allergy status; Z91.012 Allergy to eggs; Z91.018 Allergy to other foods; Z98.41 Cataract extraction status, right eye; Z79.899 Other long term (current) drug therapy; Z79.84 Long term (current) use of oral hypoglycemic drugs
CPT/HCPCS: 66984; J0697; J2250; J3010; V2632

== ENCOUNTER → 2024-04-12 | Outpatient (CLI) | payer MEDICARE, MEDICAID ==
[~2024-04-12] MED LIST changes: -PHENYLEPHRINE 10% OPHTH SOL 5ML OS PRN
== END ==
LOC: M RAD 09:14
PROVIDERS: ATTEND Internal Medicine Medical Oncology
DX: R16.1 Splenomegaly, not elsewhere classified (principal)

== ENCOUNTER → 2024-05-17 | Outpatient (CLI) | payer MEDICARE, MEDICAID ==
[2024-05-17 11:18] LABS: ALBUMIN 3.7 G/DL (3.2-5.2); ALKALINE PHOSPHATASE 103 U/L (46-116); ALT/SGPT 24 U/L (7.0-40); AST/SGOT 33 U/L (<34); BILIRUBIN,TOTAL 0.8 MG/DL (0.3-1.2); BLOOD UREA NITROGEN 11 MG/DL (9-23); CALCIUM LEVEL 9.5 MG/DL (8.3-10.6); CARBON DIOXIDE LEVEL 30 MMOL/L (20-31); CHLORIDE LEVEL 106 MMOL/L (98-107); CHOLESTEROL LEVEL 126 MG/DL (<200); CHOLESTEROL RISK RATIO 3.69 (<5); CREATININE FOR GFR 0.64 MG/DL (0.55-1.30); GLOMERULAR FILTRATION RATE > 60.0 (>45); GLUCOSE, FASTING 152 MG/DL (74-106); HDL CHOLESTEROL 34.1 MG/DL (>40); LDL CHOLESTEROL 67.5 MG/DL (<100); NON-HDL-C 91.9 MG/DL; POTASSIUM SERUM 3.6 MMOL/L (3.5-5.1); SODIUM LEVEL 140 MMOL/L (136-145); TOTAL PROTEIN 7.1 G/DL (5.7-8.2); TRIGLYCERIDES LEVEL 122 MG/DL (<150)
[2024-05-17 11:21] LABS: HEMOGLOBIN A1c 7.3 % (4.0-6.0)
[2024-05-17 11:45] LABS: MALB URINE SIEMENS < 3.0 MG/L; MAU/CREAT RATIO 1.8 MCG/MG (0.0-30.0)
== END ==
LOC: M RAD 09:19
PROVIDERS: ATTEND Nurse Practitioner Adult Health
DX: M25.551 Pain in right hip (principal); E55.9 Vitamin D deficiency, unspecified; E78.2 Mixed hyperlipidemia; E11.65 Type 2 diabetes mellitus with hyperglycemia; R06.02 Shortness of breath; K76.0 Fatty (change of) liver, not elsewhere classified

== ENCOUNTER → 2024-05-31 | Outpatient (CLI) | payer MEDICARE, MEDICAID | LOC: M CARPUL 09:27 | PROVIDERS: ATTEND Nurse Practitioner Adult Health | DX: R07.9 Chest pain, unspecified (principal) ==

== ENCOUNTER → 2024-06-21 | Outpatient (CLI) | payer MEDICARE, MEDICAID ==
[~2024-06-21] MED LIST changes: +NYST1POW3; +NYST1POW3 TOP; -NYST1POW9; -NYST1POW9 TOP
== END ==
LOC: M CARPUL 10:21
PROVIDERS: ATTEND Nurse Practitioner Adult Health
DX: Z53.9 Procedure and treatment not carried out, unspecified reason (principal); R07.9 Chest pain, unspecified

== ENCOUNTER → 2024-08-07 | Outpatient (CLI) | payer MEDICARE, MEDICAID ==
[2024-08-07 15:44] LABS: HEMATOCRIT 36.2 % (36.0-47.0); HEMOGLOBIN 11.7 g/dl (12.0-15.5); MEAN CORPUSCULAR HEMOGLOBIN 29.5 pg (27.0-33.0); MEAN CORPUSCULAR HGB CONC 32.3 g/dl (32.0-36.5); MEAN CORPUSCULAR VOLUME 91.4 fl (80.0-96.0); PLATELET COUNT, AUTOMATED 103 10^3/uL (150-450); RED BLOOD COUNT 3.96 10^6/uL (4.00-5.40); WHITE BLOOD COUNT 4.9 10^3/uL (4.0-10.0)
== END ==
LOC: M PLALAB 11:47
PROVIDERS: ATTEND Physician Assistant Medical
DX: J06.9 Acute upper respiratory infection, unspecified (principal)

== ENCOUNTER → 2024-08-07 | Outpatient (REF) | payer MEDICARE, MEDICAID | LOC: M SFHCPLAZ 15:10 | PROVIDERS: ATTEND Physician Assistant Medical | DX: J06.9 Acute upper respiratory infection, unspecified (principal) ==

== ENCOUNTER → 2024-08-15 | Outpatient (CLI) | payer MEDICARE, MEDICAID ==
[~2024-08-15] MED LIST changes: +ISOVUE-370 76% 100ML VIAL As Ordered ONE
== END ==
LOC: M RAD 11:26
PROVIDERS: ATTEND Physician Assistant Medical
DX: D50.9 Iron deficiency anemia, unspecified (principal); R19.4 Change in bowel habit; R10.84 Generalized abdominal pain; R16.1 Splenomegaly, not elsewhere classified; K76.0 Fatty (change of) liver, not elsewhere classified; K80.80 Other cholelithiasis without obstruction
CPT/HCPCS: 74177; Q9967

== ENCOUNTER 2024-09-14 08:42 | Day surgery (SDC) | payer MEDICARE, MEDICAID ==
[~2024-09-14] VITALS: Ht 158.8 cm; Wt 77.4 kg
[~2024-09-14 08:42] MED LIST changes: +FARX1TAB3 PO; -ISOVUE-370 76% 100ML VIAL As Ordered ONE; +PHEN30CA21 PO; +TRIA55AE2
[2024-09-14] MEDS ORDERED: LIDOCAINE 2% 100MG/5ML SDV (FOR ANES.) As Ordered ONE (10:47)
[2024-09-14] MEDS ORDERED: propofoL 200 MG/20 ML VIAL As Ordered ONE (10:47)
[2024-09-14] MEDS ORDERED: fentaNYL 100 MCG/2 ML INJECTION As Ordered ONE (10:58)
[2024-09-14 11:43] VITALS: TEMP 97.4
[2024-09-14 11:58] VITALS: BP 121/64; O2SAT 95
== END 2024-09-14 12:40 | disposition home or self-care (01) ==
LOC: M OPP 08:42
PROVIDERS: ATTEND Internal Medicine Gastroenterology
DX: D50.9 Iron deficiency anemia, unspecified (principal); I85.00 Esophageal varices without bleeding; K29.70 Gastritis, unspecified, without bleeding; E78.00 Pure hypercholesterolemia, unspecified; E11.9 Type 2 diabetes mellitus without complications; K76.0 Fatty (change of) liver, not elsewhere classified; K21.9 Gastro-esophageal reflux disease without esophagitis; F32.A Depression, unspecified; J45.909 Unspecified asthma, uncomplicated; G47.30 Sleep apnea, unspecified; Z88.8 Allergy status to other drugs, medicaments and biological substances; Z91.012 Allergy to eggs; Z91.018 Allergy to other foods; Z91.048 Other nonmedicinal substance allergy status; Z79.84 Long term (current) use of oral hypoglycemic drugs; Z79.899 Other long term (current) drug therapy; Z53.21 Procedure and treatment not carried out due to patient leaving prior to being seen by health care provider
CPT/HCPCS: 43239; 43244; 45378; 88305; 99281; J3010

== ENCOUNTER 2024-09-14 22:55 | Emergency (ER) | payer MEDICAID, MEDICARE ==
[~2024-09-14] VITALS: Ht 157.5 cm; Wt 74.4 kg
[2024-09-15 03:06] VITALS: BP 114/66; TEMP 97.3; O2SAT 96
== END 2024-09-15 05:43 | disposition left against medical advice (07) ==
LOC: M ED 22:55
DX: Z53.21 Procedure and treatment not carried out due to patient leaving prior to being seen by health care provider (principal)

== ENCOUNTER 2024-10-13 09:10 | Emergency (ER) | payer MEDICARE, MEDICAID ==
[~2024-10-13] VITALS: Ht 157.5 cm; Wt 77.6 kg
[2024-10-13 12:21] LABS: BASO % 0.7 % (0.0-1.0); EOS # 0.1 10^3/uL (0.0-0.5); EOS % 1.7 % (0.0-3.0); HEMOGLOBIN 11.5 g/dl (12.0-15.5); LYMPH # 1.4 10^3/uL (1.5-5.0); LYMPH % 30.2 % (24.0-44.0); MEAN CORPUSCULAR HEMOGLOBIN 30.3 pg (27.0-33.0); MEAN CORPUSCULAR HGB CONC 32.9 g/dl (32.0-36.5); MEAN CORPUSCULAR VOLUME 92.1 fl (80.0-96.0); MONO # 0.3 10^3/uL (0.0-0.8); MONO % 5.9 % (2.0-8.0); NEUTROPHILS # 2.8 10^3/uL (1.5-8.5); NEUTROPHILS % 61.3 % (36.0-66.0); WHITE BLOOD COUNT 4.6 10^3/uL (4.0-10.0)
[2024-10-13 12:31] VITALS: TEMP 97.4
[2024-10-13 12:36] LABS: PLATELET COUNT, AUTOMATED 97 10^3/uL (150-450)
[2024-10-13] MEDS: ACETAMINOPHEN *IV* 1,000 MG in IV 1 EA IV ONE (12:39)
[2024-10-13 12:41] LABS: ERYTHROCYTE SEDIMENTATION RATE 26 mm/hr (0-30)
[2024-10-13 12:45] LABS: BLOOD UREA NITROGEN 10 MG/DL (9-23); CALCIUM LEVEL 8.7 MG/DL (8.3-10.6); CARBON DIOXIDE LEVEL 27 MMOL/L (20-31); CHLORIDE LEVEL 106 MMOL/L (98-107); CREATININE FOR GFR 0.56 MG/DL (0.55-1.30); GLOMERULAR FILTRATION RATE > 60.0 (>45); GLUCOSE, FASTING 147 MG/DL (74-106); POTASSIUM SERUM 3.6 MMOL/L (3.5-5.1); SODIUM LEVEL 142 MMOL/L (136-145)
[2024-10-13 14:55] LABS: CK-MB VALUE MASS < 1.0 NG/ML (<3.6)
[2024-10-13 15:05] LABS: CPK CREATINE PHOSPHOKINASE 45 U/L (34-145); MB/CK RELATIVE INDEX 2.22 (< OR =4)
[2024-10-13 15:33] LABS: CK-MB VALUE MASS < 1.0 NG/ML (<3.6)
[2024-10-13 15:34] LABS: CPK CREATINE PHOSPHOKINASE 48 U/L (34-145); MB/CK RELATIVE INDEX 2.08 (< OR =4)
[2024-10-13 17:39] LABS: CK-MB VALUE MASS < 1.0 NG/ML (<3.6)
[2024-10-13 17:41] LABS: CPK CREATINE PHOSPHOKINASE 54 U/L (34-145); MB/CK RELATIVE INDEX 1.85 (< OR =4)
[2024-10-13] MEDS: dexAMETHasone 20MG/5ML VIAL IV ONE (18:31)
[2024-10-13] MEDS: KETOROLAC 30 MG/ML 1ML VIAL IV ONE (18:31)
[2024-10-13] MEDS: NS 500 ML IV ONE (18:31)
[2024-10-13 18:45] VITALS: BP 133/75; O2SAT 98
== END 2024-10-13 19:19 | disposition home or self-care (01) ==
LOC: M ED 09:10
DX: G43.019 Migraine without aura, intractable, without status migrainosus (principal); E11.9 Type 2 diabetes mellitus without complications; I10 Essential (primary) hypertension; R56.9 Unspecified convulsions; Z79.84 Long term (current) use of oral hypoglycemic drugs; Z79.899 Other long term (current) drug therapy; Z91.89 Other specified personal risk factors, not elsewhere classified; Z88.1 Allergy status to other antibiotic agents; Z91.018 Allergy to other foods; Z91.012 Allergy to eggs
CPT/HCPCS: 70450; 80048; 82550; 82553; 84484; 85025; 85049; 85055; 85652; 93005; 93041; 94760; 96365; 96375; 99285; J0131; J1100; J1885

== ENCOUNTER → 2024-10-20 | Outpatient (CLI) | payer MEDICARE, MEDICAID ==
[~2024-10-20] MED LIST changes: +GLIP-318 PO; -GLIP5TAB20 PO; +LINZ145C PO
[2024-10-20 10:03] LABS: ALBUMIN 3.6 G/DL (3.2-5.2); BILIRUBIN,DIRECT 0.3 MG/DL (<0.4); BILIRUBIN,TOTAL 0.8 MG/DL (0.3-1.2); TOTAL PROTEIN 7.1 G/DL (5.7-8.2)
[2024-10-20 10:05] LABS: IMMUNOGLOBULIN A 305.2 MG/DL (40-350)
== END ==
LOC: M RAD 08:17
PROVIDERS: ATTEND Physician Assistant Medical
DX: K80.20 Calculus of gallbladder without cholecystitis without obstruction (principal); K74.60 Unspecified cirrhosis of liver; K76.6 Portal hypertension; R19.04 Left lower quadrant abdominal swelling, mass and lump; K90.0 Celiac disease; R16.1 Splenomegaly, not elsewhere classified

== ENCOUNTER 2024-10-31 12:54 | Emergency (ER) | payer MEDICARE, MEDICAID ==
[~2024-10-31] VITALS: Ht 157.5 cm; Wt 76.4 kg
[2024-10-31 13:41] VITALS: TEMP 97.8
[2024-10-31] MEDS: MORPHINE 2 MG/ML 1ML VIAL IM ONE (15:26)
[2024-10-31 16:45] VITALS: BP 124/57; O2SAT 93
== END 2024-10-31 17:10 | disposition home or self-care (01) ==
LOC: EDBD 12:54 → M ED 12:54
DX: S01.01XA Laceration without foreign body of scalp, initial encounter (principal); Y04.8XXA Assault by other bodily force, initial encounter; Y92.009 Unspecified place in unspecified non-institutional (private) residence as the place of occurrence of the external cause; Y93.9 Activity, unspecified; Y99.9 Unspecified external cause status; M47.812 Spondylosis without myelopathy or radiculopathy, cervical region; E11.9 Type 2 diabetes mellitus without complications; K76.9 Liver disease, unspecified; Z86.2 Personal history of diseases of the blood and blood-forming organs and certain disorders involving the immune mechanism; Z79.84 Long term (current) use of oral hypoglycemic drugs; Z79.899 Other long term (current) drug therapy; Z88.1 Allergy status to other antibiotic agents; Z91.018 Allergy to other foods; Z91.012 Allergy to eggs; Z91.89 Other specified personal risk factors, not elsewhere classified

== ENCOUNTER → 2024-11-07 | Outpatient (CLI) | payer MEDICARE, MEDICAID ==
[~2024-11-07] MED LIST changes: +DIVA250T67
== END ==
LOC: M PLAIMG 15:15
PROVIDERS: ATTEND Nurse Practitioner Adult Health
DX: M25.521 Pain in right elbow (principal)

== ENCOUNTER → 2024-11-08 | Outpatient (REF) | payer MEDICARE, MEDICAID ==
[2024-11-08 09:52] LABS: HEMOGLOBIN A1c 6.4 % (4.0-6.0)
[2024-11-08 09:55] LABS: ALBUMIN 3.5 G/DL (3.2-5.2); ALKALINE PHOSPHATASE 94 U/L (35-104); ALT/SGPT 19 U/L (7.0-40); AST/SGOT 26 U/L (<34); BILIRUBIN,TOTAL 0.8 MG/DL (0.3-1.2); BLOOD UREA NITROGEN 10 MG/DL (9-23); CALCIUM LEVEL 9.1 MG/DL (8.3-10.6); CARBON DIOXIDE LEVEL 30 MMOL/L (20-31); CHLORIDE LEVEL 103 MMOL/L (98-107); CHOLESTEROL LEVEL 109 MG/DL (<200); CHOLESTEROL RISK RATIO 3.18 (<5); CREATININE FOR GFR 0.63 MG/DL (0.55-1.30); GLOMERULAR FILTRATION RATE > 60.0 (>45); GLUCOSE, FASTING 166 MG/DL (74-106); HDL CHOLESTEROL 34.2 MG/DL (>40); NON-HDL-C 74.8 MG/DL; POTASSIUM SERUM 3.4 MMOL/L (3.5-5.1); SODIUM LEVEL 143 MMOL/L (136-145); TOTAL PROTEIN 6.8 G/DL (5.7-8.2); TRIGLYCERIDES LEVEL 104 MG/DL (<150)
[2024-11-08 09:56] LABS: FREE T4 0.93 NG/DL (0.89-1.76); THYROID STIMULATING HORMONE 1.812 uIU/ML (0.55-4.78)
== END ==
LOC: M LAB REF 08:58
PROVIDERS: ATTEND Nurse Practitioner Adult Health
DX: E11.65 Type 2 diabetes mellitus with hyperglycemia (principal); R06.02 Shortness of breath; E78.2 Mixed hyperlipidemia

== ENCOUNTER 2024-11-21 12:13 | Day surgery (SDC) | payer MEDICARE, MEDICAID ==
[~2024-11-21] VITALS: Ht 160 cm; Wt 76.5 kg
[2024-11-21 14:49] VITALS: TEMP 96.9
[2024-11-21 15:15] VITALS: BP 125/58; O2SAT 95
== END 2024-11-21 15:27 | disposition home or self-care (01) ==
LOC: M OPP 12:13
PROVIDERS: ATTEND Internal Medicine Gastroenterology
DX: I85.00 Esophageal varices without bleeding (principal); G47.30 Sleep apnea, unspecified; Z88.8 Allergy status to other drugs, medicaments and biological substances; Z91.018 Allergy to other foods; Z91.012 Allergy to eggs; Z91.048 Other nonmedicinal substance allergy status; Z79.84 Long term (current) use of oral hypoglycemic drugs; Z79.899 Other long term (current) drug therapy; F02.80 Dementia in other diseases classified elsewhere, unspecified severity, without behavioral disturbance, psychotic disturbance, mood disturbance, and anxiety; R56.9 Unspecified convulsions

== ENCOUNTER 2024-11-27 18:59 | Emergency (ER) | payer MEDICARE, MEDICAID ==
[~2024-11-27] VITALS: Ht 157.5 cm; Wt 78.8 kg
[2024-11-27 19:01] VITALS: TEMP 98.4
[2024-11-27 19:31] LABS: BASO % 0.7 % (0.0-1.0); EOS # 0.1 10^3/uL (0.0-0.5); EOS % 2.3 % (0.0-3.0); HEMATOCRIT 33.8 % (36.0-47.0); HEMOGLOBIN 11.1 g/dl (12.0-15.5); LYMPH # 1.4 10^3/uL (1.5-5.0); LYMPH % 31.5 % (24.0-44.0); MEAN CORPUSCULAR HEMOGLOBIN 29.8 pg (27.0-33.0); MEAN CORPUSCULAR HGB CONC 32.8 g/dl (32.0-36.5); MEAN CORPUSCULAR VOLUME 90.6 fl (80.0-96.0); MONO # 0.4 10^3/uL (0.0-0.8); MONO % 8.3 % (2.0-8.0); NEUTROPHILS # 2.5 10^3/uL (1.5-8.5); NEUTROPHILS % 56.7 % (36.0-66.0); RED BLOOD COUNT 3.73 10^6/uL (4.00-5.40); WHITE BLOOD COUNT 4.3 10^3/uL (4.0-10.0)
[2024-11-27 19:40] LABS: PLATELET COUNT, AUTOMATED 95 10^3/uL (150-450)
[2024-11-27 19:58] LABS: BLOOD UREA NITROGEN 11 MG/DL (9-23); CALCIUM LEVEL 8.8 MG/DL (8.3-10.6); CARBON DIOXIDE LEVEL 29 MMOL/L (20-31); CHLORIDE LEVEL 103 MMOL/L (98-107); CK-MB VALUE MASS < 1.0 NG/ML (<3.6); CPK CREATINE PHOSPHOKINASE 53 U/L (34-145); CREATININE FOR GFR 0.59 MG/DL (0.55-1.30); GLOMERULAR FILTRATION RATE > 90.0 (>45); GLUCOSE, FASTING 207 MG/DL (74-106); MB/CK RELATIVE INDEX 1.88 (< OR =4); POTASSIUM SERUM 3.5 MMOL/L (3.5-5.1); SODIUM LEVEL 141 MMOL/L (136-145)
[2024-11-27 21:11] LABS: CK-MB VALUE MASS 1.9 NG/ML (<3.6)
[2024-11-27 21:13] LABS: CPK CREATINE PHOSPHOKINASE 53 U/L (34-145); MB/CK RELATIVE INDEX 3.58 (< OR =4)
[2024-11-28] MEDS ORDERED: ISOVUE-370 76% 100ML VIAL As Ordered ONE (00:45)
[2024-11-28] MEDS: KETOROLAC 30 MG/ML 1ML VIAL IV ONE (01:07)
[2024-11-28 02:15] VITALS: BP 82/46; O2SAT 95
[2024-11-28] MEDS ORDERED: PROT1TAB2 PO (03:23)
[2024-11-28] MEDS: PANTOPRAZOLE 40MG VIAL IV ONE (03:48)
== END 2024-11-28 04:00 | disposition home or self-care (01) ==
LOC: M ED 18:59
DX: K44.9 Diaphragmatic hernia without obstruction or gangrene (principal); K80.20 Calculus of gallbladder without cholecystitis without obstruction; R16.1 Splenomegaly, not elsewhere classified; E11.9 Type 2 diabetes mellitus without complications; F03.90 Unspecified dementia, unspecified severity, without behavioral disturbance, psychotic disturbance, mood disturbance, and anxiety; Z79.84 Long term (current) use of oral hypoglycemic drugs; Z79.899 Other long term (current) drug therapy; Z91.89 Other specified personal risk factors, not elsewhere classified; Z88.1 Allergy status to other antibiotic agents; Z91.018 Allergy to other foods; Z91.012 Allergy to eggs
CPT/HCPCS: 71045; 71275; 80048; 82550; 82553; 84484; 85025; 85049; 85055; 87486; 87581; 87633; 87798; 93005; 93041; 94760; 96374; 96375; 99285; J1885; J2470; Q9967

== ENCOUNTER 2024-12-16 21:48 | Inpatient (IN) | payer MEDICARE, MEDICAID ==
[~2024-12-16] VITALS: Ht 157.5 cm; Wt 77.7 kg
[~2024-12-16 21:48] MED LIST changes: -DIVA250T67; +DIVA250T67 PO; +PROT1TAB2 PO
[2024-12-16 22:40] LABS: BASO % 0.6 % (0.0-1.0); EOS # 0.1 10^3/uL (0.0-0.5); EOS % 2.3 % (0.0-3.0); HEMATOCRIT 34.6 % (36.0-47.0); HEMOGLOBIN 11.2 g/dl (12.0-15.5); LYMPH # 1.1 10^3/uL (1.5-5.0); LYMPH % 22.9 % (24.0-44.0); MEAN CORPUSCULAR HEMOGLOBIN 29.4 pg (27.0-33.0); MEAN CORPUSCULAR HGB CONC 32.4 g/dl (32.0-36.5); MEAN CORPUSCULAR VOLUME 90.8 fl (80.0-96.0); MONO # 0.3 10^3/uL (0.0-0.8); NEUTROPHILS # 3.2 10^3/uL (1.5-8.5); RED BLOOD COUNT 3.81 10^6/uL (4.00-5.40); WHITE BLOOD COUNT 4.7 10^3/uL (4.0-10.0)
[2024-12-16 22:41] LABS: PLATELET COUNT, AUTOMATED 88 10^3/uL (150-450)
[2024-12-16 22:52] LABS: INR 1.17; PROTHROMBIN TIME 15.2 SECONDS (12.5-14.5)
[2024-12-16 23:03] LABS: LIPASE 51 U/L (12-53)
[2024-12-16 23:05] LABS: ALBUMIN 3.4 G/DL (3.2-5.2); ALKALINE PHOSPHATASE 119 U/L (35-104); ALT/SGPT 20 U/L (7.0-40); AST/SGOT 22 U/L (<34); BILIRUBIN,DIRECT 0.2 MG/DL (<0.4); BILIRUBIN,TOTAL 0.6 MG/DL (0.3-1.2); BLOOD UREA NITROGEN 7 MG/DL (9-23); CARBON DIOXIDE LEVEL 28 MMOL/L (20-31); CHLORIDE LEVEL 106 MMOL/L (98-107); CPK CREATINE PHOSPHOKINASE 55 U/L (34-145); CREATININE FOR GFR 0.62 MG/DL (0.55-1.30); GLOMERULAR FILTRATION RATE > 90.0 (>45); GLUCOSE, FASTING 261 MG/DL (74-106); MB/CK RELATIVE INDEX 1.81 (< OR =4); POTASSIUM SERUM 3.5 MMOL/L (3.5-5.1); SODIUM LEVEL 143 MMOL/L (136-145); TOTAL PROTEIN 6.9 G/DL (5.7-8.2)
[2024-12-16] MEDS: ACETAMINOPHEN *IV* 1,000 MG in IV 1 EA IV ONE (23:34)
[2024-12-16] MEDS: NS (Normal Saline) 0.9% 1,000 ML IV ONE (23:36)
[2024-12-17] MEDS ORDERED: ISOVUE-370 76% 100ML VIAL As Ordered ONE (00:10)
[2024-12-17 02:14] LABS: CK-MB VALUE MASS < 1.0 NG/ML (<3.6); VALPROIC ACID (DEPAKOTE) 42.8 UG/ML (50.0-100.0)
[2024-12-17 02:16] LABS: CPK CREATINE PHOSPHOKINASE 42 U/L (34-145); MB/CK RELATIVE INDEX 2.38 (< OR =4)
[2024-12-17] MEDS: NS 0.9% IV ONE (02:38)
[2024-12-17] MEDS: [UNRECOGNIZED DRUG - OTHER] IV ONE (02:38)
[2024-12-17] MEDS: PIPERACILLIN/TAZOBACTAM SOD 4.5 GM in DEXTROSE 5% (D5W) ADV/MINI-BAG 50 ML IV ONE (02:38)
[2024-12-17] MEDS ORDERED: MAALOX 30 ML SUSP *UDC PO PRN (02:45)
[2024-12-17] MEDS ORDERED: ACETAMINOPHEN 325 MG TAB PO PRN (02:45)
[2024-12-17] MEDS ORDERED: ONDANSETRON 4MG 2ML VIAL IV PRN (02:45)
[2024-12-17] MEDS ORDERED: MOM 30ML SUSPENSION UDC PO PRN (02:45)
[2024-12-17] MEDS: LR 1,000 ML IV SCH ×2 (02:45→08:00)
[2024-12-17 03:08] LABS: KETONE, URINE AUTO RFX NEGATIVE (NEGATIVE); LEUKOCYTE ESTERASE UR AUTO RFX NEGATIVE (NEGATIVE); NITRITE, URINE AUTO RFX NEGATIVE (NEGATIVE); RBC, URINE AUTO RFX 2 /HPF (0-3); SQUAM EPITHELIAL CELL UR AURFX 0 /HPF (0-6); WBC, URINE AUTO RFX 1 /HPF (0-3)
[2024-12-17 03:52] LABS: PROCALCITONIN 0.06 ng/ml
[2024-12-17] MEDS ORDERED: DONE10TA90 PO (04:23)
[2024-12-17] MEDS ORDERED: PANT40TA29 PO (04:23)
[2024-12-17] MEDS ORDERED: HOME MED LIST COMPLETE! XX SCH (04:25)
[2024-12-17] MEDS ORDERED: DEXTROSE 50% 50ML SYRINGE IV PRN (05:20)
[2024-12-17] MEDS ORDERED: GLUCOSE 4 GM CHEW PO PRN (05:20)
[2024-12-17] MEDS ORDERED: GLUCAGON INJ 1MG VIAL SC PRN (05:20)
[2024-12-17] MEDS: metroNIDAZOLE 500 MG in IV 1 EA IV SCH (05:33)
[2024-12-17 06:21] LABS: BASO % 0.5 % (0.0-1.0); EOS # 0.1 10^3/uL (0.0-0.5); EOS % 1.4 % (0.0-3.0); HEMATOCRIT 29.9 % (36.0-47.0); HEMOGLOBIN 9.6 g/dl (12.0-15.5); LYMPH % 23.1 % (24.0-44.0); MEAN CORPUSCULAR HEMOGLOBIN 29.3 pg (27.0-33.0); MEAN CORPUSCULAR HGB CONC 32.1 g/dl (32.0-36.5); MEAN CORPUSCULAR VOLUME 91.2 fl (80.0-96.0); MONO # 0.5 10^3/uL (0.0-0.8); NEUTROPHILS # 2.7 10^3/uL (1.5-8.5); NEUTROPHILS % 63.8 % (36.0-66.0); RED BLOOD COUNT 3.28 10^6/uL (4.00-5.40); WHITE BLOOD COUNT 4.3 10^3/uL (4.0-10.0)
[2024-12-17 06:22] LABS: PLATELET COUNT, AUTOMATED 69 10^3/uL (150-450)
[2024-12-17] MEDS ORDERED: MORPHINE 2 MG/ML 1ML VIAL IV PRN (06:45)
[2024-12-17] MEDS ORDERED: NALOXONE INJ 0.4MG/1ML VIAL IV PRN (06:45)
[2024-12-17 06:53] LABS: PROCALCITONIN 0.11 ng/ml
[2024-12-17 06:55] LABS: ALBUMIN 2.8 G/DL (3.2-5.2); ALKALINE PHOSPHATASE 88 U/L (35-104); ALT/SGPT 18 U/L (7.0-40); AST/SGOT 18 U/L (<34); BILIRUBIN,TOTAL 0.8 MG/DL (0.3-1.2); BLOOD UREA NITROGEN 6 MG/DL (9-23); CALCIUM LEVEL 7.3 MG/DL (8.3-10.6); CARBON DIOXIDE LEVEL 26 MMOL/L (20-31); CHLORIDE LEVEL 109 MMOL/L (98-107); CREATININE FOR GFR 0.61 MG/DL (0.55-1.30); GLOMERULAR FILTRATION RATE > 90.0 (>45); GLUCOSE, FASTING 154 MG/DL (74-106); MAGNESIUM LEVEL 1.4 MG/DL (1.8-2.4); POTASSIUM SERUM 3.3 MMOL/L (3.5-5.1); SODIUM LEVEL 145 MMOL/L (136-145); TOTAL PROTEIN 5.6 G/DL (5.7-8.2)
[2024-12-17 07:10] LABS: IRON (FE) 24 UG/DL (50-170); PERCENT SATURATION 7.6 % (13.2-45.0); TOTAL IRON BINDING CAPACITY 316 UG/DL (250-425)
[2024-12-17] MEDS: INSULIN LISPRO (NovoLOG) PER UNIT SC SCH (07:30)
[2024-12-17] MEDS: LR 1,000 ML IV ONE (07:32)
[2024-12-17] MEDS: SUCRALFATE SUSP 1GM/10ML UD PO SCH (07:32)
[2024-12-17] MEDS: CitaloPRAM (CeleXA) 20 MG TAB PO SCH (07:32)
[2024-12-17] MEDS: DIVALPROEX 250MG TAB PO SCH (07:32)
[2024-12-17] MEDS: PANTOPRAZOLE 40MG TAB (PROTONIX) PO SCH (07:32)
[2024-12-17] MEDS: MIDODRINE 5 MG TAB PO SCH (07:32)
[2024-12-17] MEDS: DOCUSATE SODIUM 100MG CAPSULE PO SCH (07:33)
[2024-12-17] MEDS: DAPAGLIFLOZIN PROPANEDIOL 10MG TABLET (FARXIGA) PO SCH (07:33)
[2024-12-17 07:35] LABS: HEMOGLOBIN A1c 7.5 % (4.0-6.0)
[2024-12-17] MEDS: LanTUS (INSULIN GLARGINE INJ) 1 UNITS/0.01 ML SC SCH (07:41)
[2024-12-17 07:44] LABS: CHOLESTEROL RISK RATIO 3.57 (<5); HDL CHOLESTEROL 30.2 MG/DL (>40); LDL CHOLESTEROL 59.2 MG/DL (<100); NON-HDL-C 77.8 MG/DL; PERCENT SATURATION 9.4 % (13.2-45.0)
[2024-12-17 07:47] LABS: FERRITIN 8.1 NG/ML (7.3-270.7)
[2024-12-17] MEDS: HYDROCORTISONE 100MG/2ML VIAL IV SCH (07:53)
[2024-12-17] MEDS: FAMOTIDINE IV BAG 20 MG in IV 1 EA IV SCH (07:53)
[2024-12-17] MEDS ORDERED: CIPROFLOXACIN 400 MG in IV 1 EA IV SCH (08:00)
[2024-12-17] MEDS: POLYVINYL ALCOHOL OPHTH SOLN 15ML (LIQUITEARS) OU SCH (08:12)
[2024-12-17] MEDS: DONEPEZIL 5 MG TAB PO SCH (08:13)
[2024-12-17] MEDS: OLOPATADINE 0.1% OPHTH SOL 5ML(PATANOL) OU SCH (08:13)
[2024-12-17 08:17] LABS: SOURCE PERIPHERAL SMEAR
[2024-12-17] MEDS: MAG SULF 1GM/100ML (MAG RUN) 1 GM in IV 1 EA IV SCH (08:25)
[2024-12-17] MEDS ORDERED: CHLORTHALIDONE 25 MG TAB PO SCH (09:00)
[2024-12-17] MEDS ORDERED: HEPARIN SOD (PORCINE) 5000UNITS/ML 1ML VIAL/SYRINGE SC SCH (09:00)
[2024-12-17] MEDS: PIPERACILLIN/TAZOBACTAM SOD 4.5 GM in DEXTROSE 5% (D5W) ADV/MINI-BAG 50 ML IV SCH (11:45)
[2024-12-17 12:05] VITALS: BP 140/56; TEMP 97.7; O2SAT 94
[2024-12-17 12:26] LABS: HEMATOCRIT 32.8 % (36.0-47.0); HEMOGLOBIN 10.6 g/dl (12.0-15.5)
[2024-12-17] MEDS ORDERED: metroNIDAZOLE 500 MG in IV 1 EA IV SCH (13:00)
[2024-12-17] MEDS ORDERED: RIZATRIPTAN MLT 10 MG TAB PO PRN (13:25)
[2024-12-17] MEDS: METOCLOPRAMIDE INJ 10MG/2ML VIAL IV ONE (13:29)
[2024-12-17] MEDS: oxyCODONE 5MG TAB PO ONE (13:32)
[2024-12-17] MEDS: RIZATRIPTAN MLT 10 MG TAB PO ONE (15:07)
[2024-12-17 18:39] LABS: HEMATOCRIT 31.6 % (36.0-47.0); HEMOGLOBIN 10.4 g/dl (12.0-15.5)
[2024-12-17 20:46] VITALS: BP 114/58; TEMP 97.7; O2SAT 94
[2024-12-17 21:00] VITALS: TEMP 97.9
[2024-12-17] MEDS ORDERED: NYSTATIN 100,000 UNITS/GM TOPICAL PWD 15GM TOP SCH (21:00)
[2024-12-17] MEDS: SIMVASTATIN 10 MG TAB PO SCH (22:06)
[2024-12-17] MEDS: MONTELUKAST 10 MG TAB PO SCH (22:06)
[2024-12-17] MEDS: NYSTATIN 100,000 UNITS/GM TOPICAL PWD 15GM TOP SCH (22:08)
[2024-12-18] VITALS (8 sets, daily range): BP systolic 94–114; BP diastolic 48–58; TEMP 97.1–99.5; O2SAT 93–95
[2024-12-18 00:21] LABS: HEMATOCRIT 29.3 % (36.0-47.0); HEMOGLOBIN 9.5 g/dl (12.0-15.5)
[2024-12-18 05:13] LABS: BASO % 0.3 % (0.0-1.0); EOS # 0.1 10^3/uL (0.0-0.5); EOS % 2.5 % (0.0-3.0); HEMATOCRIT 29.7 % (36.0-47.0); HEMOGLOBIN 9.6 g/dl (12.0-15.5); LYMPH # 1.4 10^3/uL (1.5-5.0); LYMPH % 34.8 % (24.0-44.0); MEAN CORPUSCULAR HEMOGLOBIN 29.4 pg (27.0-33.0); MEAN CORPUSCULAR HGB CONC 32.3 g/dl (32.0-36.5); MEAN CORPUSCULAR VOLUME 91.1 fl (80.0-96.0); MONO # 0.3 10^3/uL (0.0-0.8); MONO % 8.3 % (2.0-8.0); NEUTROPHILS # 2.2 10^3/uL (1.5-8.5); NEUTROPHILS % 53.6 % (36.0-66.0); RED BLOOD COUNT 3.26 10^6/uL (4.00-5.40)
[2024-12-18 05:27] LABS: PLATELET COUNT, AUTOMATED 68 10^3/uL (150-450)
[2024-12-18 05:34] LABS: LIPASE 24 U/L (12-53)
[2024-12-18 05:38] LABS: ALBUMIN 2.6 G/DL (3.2-5.2); ALKALINE PHOSPHATASE 69 U/L (35-104); ALT/SGPT 13 U/L (7.0-40); AST/SGOT 17 U/L (<34); BILIRUBIN,DIRECT 0.3 MG/DL (<0.4); BILIRUBIN,TOTAL 0.9 MG/DL (0.3-1.2); BLOOD UREA NITROGEN 9 MG/DL (9-23); CALCIUM LEVEL 8.1 MG/DL (8.3-10.6); CARBON DIOXIDE LEVEL 28 MMOL/L (20-31); CHLORIDE LEVEL 108 MMOL/L (98-107); GLOMERULAR FILTRATION RATE > 90.0 (>45); GLUCOSE, FASTING 124 MG/DL (74-106); MAGNESIUM LEVEL 1.9 MG/DL (1.8-2.4); POTASSIUM SERUM 3.1 MMOL/L (3.5-5.1); SODIUM LEVEL 144 MMOL/L (136-145); TOTAL PROTEIN 5.4 G/DL (5.7-8.2)
[2024-12-18 08:41] LABS: MONO REFLEX EBV VCA IgM NEGATIVE (NEGATIVE)
[2024-12-18] MEDS: LR 1,000 ML IV ONE ×2 (08:46→10:48)
[2024-12-18] MEDS: POTASSIUM CHLORIDE 10MEQ SR TABLET PO ONE (10:45)
[2024-12-18] MEDS: MIDODRINE 5 MG TAB PO ONE (10:48)
[2024-12-18] MEDS ORDERED: MIDODRINE 5 MG TAB PO SCH (12:00)
[2024-12-18 12:17] LABS: HEMATOCRIT 31.2 % (36.0-47.0)
[2024-12-18] MEDS: LOPERAMIDE 2 MG CAPLET PO ONE (13:40)
[2024-12-18] MEDS: MIDODRINE 5 MG TAB PO SCH (15:13)
[2024-12-18] MEDS: LOPERAMIDE 2 MG CAPLET PO PRN (18:14)
[2024-12-18 18:48] LABS: HEMATOCRIT 31.8 % (36.0-47.0); HEMOGLOBIN 10.1 g/dl (12.0-15.5)
[2024-12-19] VITALS (7 sets, daily range): BP systolic 102–136; BP diastolic 43–62; TEMP 97.6–99.3; O2SAT 92–94
[2024-12-19 00:12] LABS: HEMATOCRIT 29.2 % (36.0-47.0); HEMOGLOBIN 9.5 g/dl (12.0-15.5)
[2024-12-19 05:58] LABS: BASO % 0.8 % (0.0-1.0); EOS # 0.1 10^3/uL (0.0-0.5); EOS % 3.2 % (0.0-3.0); HEMATOCRIT 29.2 % (36.0-47.0); HEMOGLOBIN 9.5 g/dl (12.0-15.5); LYMPH # 1.2 10^3/uL (1.5-5.0); MEAN CORPUSCULAR HEMOGLOBIN 29.7 pg (27.0-33.0); MEAN CORPUSCULAR HGB CONC 32.5 g/dl (32.0-36.5); MEAN CORPUSCULAR VOLUME 91.3 fl (80.0-96.0); MONO # 0.3 10^3/uL (0.0-0.8); MONO % 8.9 % (2.0-8.0); NEUTROPHILS # 2.1 10^3/uL (1.5-8.5); NEUTROPHILS % 55.8 % (36.0-66.0); WHITE BLOOD COUNT 3.7 10^3/uL (4.0-10.0)
[2024-12-19 05:59] LABS: ALBUMIN 2.5 G/DL (3.2-5.2); BILIRUBIN,DIRECT 0.3 MG/DL (<0.4); BILIRUBIN,TOTAL 0.7 MG/DL (0.3-1.2); CALCIUM LEVEL 8.1 MG/DL (8.3-10.6); CREATININE FOR GFR 0.77 MG/DL (0.55-1.30); GLOMERULAR FILTRATION RATE 84.5 (>45); MAGNESIUM LEVEL 1.7 MG/DL (1.8-2.4); POTASSIUM SERUM 3.5 MMOL/L (3.5-5.1); TOTAL PROTEIN 5.4 G/DL (5.7-8.2)
[2024-12-19 06:09] LABS: PLATELET COUNT, AUTOMATED 67 10^3/uL (150-450)
[2024-12-19] MEDS: MAG SULF 1GM/100ML (MAG RUN) 1 GM in IV 1 EA IV ONE (09:19)
[2024-12-19] MEDS: ONDANSETRON 4MG 2ML VIAL IV PRN (10:32)
[2024-12-19 12:44] LABS: HEMATOCRIT 30.1 % (36.0-47.0); HEMOGLOBIN 9.7 g/dl (12.0-15.5)
[2024-12-19 18:30] LABS: HEMATOCRIT 31.7 % (36.0-47.0); HEMOGLOBIN 10.2 g/dl (12.0-15.5)
[2024-12-20 03:25] VITALS: BP 104/50; TEMP 98.5; O2SAT 92
[2024-12-20 04:59] LABS: BASO % 0.6 % (0.0-1.0); EOS # 0.1 10^3/uL (0.0-0.5); HEMATOCRIT 29.1 % (36.0-47.0); HEMOGLOBIN 9.3 g/dl (12.0-15.5); LYMPH # 1.3 10^3/uL (1.5-5.0); LYMPH % 37.1 % (24.0-44.0); MEAN CORPUSCULAR HEMOGLOBIN 29.2 pg (27.0-33.0); MEAN CORPUSCULAR VOLUME 91.5 fl (80.0-96.0); MONO # 0.3 10^3/uL (0.0-0.8); MONO % 9.1 % (2.0-8.0); NEUTROPHILS # 1.8 10^3/uL (1.5-8.5); NEUTROPHILS % 49.6 % (36.0-66.0); RED BLOOD COUNT 3.18 10^6/uL (4.00-5.40); WHITE BLOOD COUNT 3.6 10^3/uL (4.0-10.0)
[2024-12-20 05:00] LABS: PLATELET COUNT, AUTOMATED 76 10^3/uL (150-450)
[2024-12-20 05:02] LABS: MAGNESIUM LEVEL 1.8 MG/DL (1.8-2.4)
[2024-12-20 08:23] VITALS: BP 104/49
[2024-12-20 09:45] LABS: BLOOD UREA NITROGEN 8 MG/DL (9-23); CALCIUM LEVEL 8.2 MG/DL (8.3-10.6); CARBON DIOXIDE LEVEL 28 MMOL/L (20-31); CHLORIDE LEVEL 106 MMOL/L (98-107); CREATININE FOR GFR 0.73 MG/DL (0.55-1.30); GLOMERULAR FILTRATION RATE > 90.0 (>45); GLUCOSE, FASTING 126 MG/DL (74-106); POTASSIUM SERUM 3.6 MMOL/L (3.5-5.1); SODIUM LEVEL 143 MMOL/L (136-145)
[2024-12-20] MEDS ORDERED: MIDO5TA PO (11:28)
[2024-12-20 12:00] VITALS: BP 114/50; TEMP 97.7; O2SAT 92
[2024-12-21 17:52] LABS: PARVOVIRUS B19 SOURCE NOT GIVEN
== END 2024-12-20 13:25 | disposition home or self-care (01) | DRG 815 ==
LOC: M ED 21:48 → M ED INP 21:50 → OBSVTOIN 12-17 09:35 → M MSPAV 12-17 11:55
PROVIDERS: ADMIT Student in an Organized Health Care Education/Training Program; ATTEND Internal Medicine Nephrology
DX: R16.1 Splenomegaly, not elsewhere classified (principal); I85.10 Secondary esophageal varices without bleeding; K76.6 Portal hypertension; J98.11 Atelectasis; E87.20 Acidosis, unspecified; D69.6 Thrombocytopenia, unspecified; K74.60 Unspecified cirrhosis of liver; I10 Essential (primary) hypertension; E78.5 Hyperlipidemia, unspecified; K21.9 Gastro-esophageal reflux disease without esophagitis; E11.9 Type 2 diabetes mellitus without complications; G40.909 Epilepsy, unspecified, not intractable, without status epilepticus; F32.A Depression, unspecified; F41.9 Anxiety disorder, unspecified; E86.1 Hypovolemia; E87.6 Hypokalemia; I95.9 Hypotension, unspecified; R19.7 Diarrhea, unspecified; K80.20 Calculus of gallbladder without cholecystitis without obstruction; E83.42 Hypomagnesemia; E83.51 Hypocalcemia; D63.8 Anemia in other chronic diseases classified elsewhere; E88.09 Other disorders of plasma-protein metabolism, not elsewhere classified; A08.4 Viral intestinal infection, unspecified; K75.81 Nonalcoholic steatohepatitis (NASH); G47.33 Obstructive sleep apnea (adult) (pediatric); F03.90 Unspecified dementia, unspecified severity, without behavioral disturbance, psychotic disturbance, mood disturbance, and anxiety; K58.9 Irritable bowel syndrome, unspecified; G43.909 Migraine, unspecified, not intractable, without status migrainosus; Z98.41 Cataract extraction status, right eye; Z98.42 Cataract extraction status, left eye; Z79.84 Long term (current) use of oral hypoglycemic drugs; Z79.899 Other long term (current) drug therapy; Z91.012 Allergy to eggs; Z91.018 Allergy to other foods; Z88.8 Allergy status to other drugs, medicaments and biological substances; Z91.048 Other nonmedicinal substance allergy status

== ENCOUNTER 2024-12-28 20:03 | Emergency (ER) | payer MEDICARE, MEDICAID ==
[~2024-12-28] VITALS: Ht 157.5 cm; Wt 77.1 kg
[~2024-12-28 20:03] MED LIST changes: -CHOL100013 PO; +CHOL25TA16 PO; +DONE10TA90 PO; +MIDO5TA PO; +PANT40TA29 PO
[2024-12-28 21:53] LABS: BASO # 0.1 10^3/uL (0.0-0.2); BASO % 0.8 % (0.0-1.0); EOS # 0.1 10^3/uL (0.0-0.5); EOS % 1.8 % (0.0-3.0); HEMATOCRIT 35.8 % (36.0-47.0); HEMOGLOBIN 11.9 g/dl (12.0-15.5); LYMPH # 1.7 10^3/uL (1.5-5.0); MEAN CORPUSCULAR HEMOGLOBIN 29.2 pg (27.0-33.0); MEAN CORPUSCULAR HGB CONC 33.2 g/dl (32.0-36.5); MEAN CORPUSCULAR VOLUME 87.7 fl (80.0-96.0); MONO # 0.5 10^3/uL (0.0-0.8); MONO % 8.4 % (2.0-8.0); NEUTROPHILS # 3.6 10^3/uL (1.5-8.5); NEUTROPHILS % 59.5 % (36.0-66.0); PLATELET COUNT, AUTOMATED 129 10^3/uL (150-450); RED BLOOD COUNT 4.08 10^6/uL (4.00-5.40)
[2024-12-28 22:41] LABS: BLOOD UREA NITROGEN 12 MG/DL (9-23); CALCIUM LEVEL 9.5 MG/DL (8.3-10.6); CARBON DIOXIDE LEVEL 28 MMOL/L (20-31); CHLORIDE LEVEL 101 MMOL/L (98-107); CREATININE FOR GFR 0.67 MG/DL (0.55-1.30); GLOMERULAR FILTRATION RATE > 90.0 (>45); GLUCOSE, FASTING 144 MG/DL (74-106); POTASSIUM SERUM 3.8 MMOL/L (3.5-5.1); SODIUM LEVEL 140 MMOL/L (136-145)
[2024-12-29] MEDS ORDERED: COLA100C5 PO (05:33)
[2024-12-29 05:52] VITALS: BP 125/59; TEMP 97.9; O2SAT 94
== END 2024-12-29 05:54 | disposition home or self-care (01) ==
LOC: M ED 20:03
DX: K59.00 Constipation, unspecified (principal); E11.9 Type 2 diabetes mellitus without complications; K21.9 Gastro-esophageal reflux disease without esophagitis; I10 Essential (primary) hypertension; E78.5 Hyperlipidemia, unspecified; K80.20 Calculus of gallbladder without cholecystitis without obstruction; Z87.19 Personal history of other diseases of the digestive system; Z79.899 Other long term (current) drug therapy; Z88.1 Allergy status to other antibiotic agents; Z91.89 Other specified personal risk factors, not elsewhere classified; Z91.018 Allergy to other foods; Z91.012 Allergy to eggs

== ENCOUNTER → 2025-03-08 | Outpatient (CLI) | payer MEDICARE, MEDICAID ==
[~2025-03-08] MED LIST changes: +COLA100C5 PO; +DOCU100C16; +MAGN400T2 PO
== END ==
LOC: M RAD 09:43
DX: D69.6 Thrombocytopenia, unspecified (principal); R10.9 Unspecified abdominal pain

== ENCOUNTER → 2025-07-02 | Outpatient (REF) | payer MEDICARE, MEDICAID ==
[2025-07-02 19:13] LABS: BASO # 0.0 10^3/uL (0.0-0.2); BASO % 0.5 % (0.0-1.0); EOS # 0.1 10^3/uL (0.0-0.5); EOS % 2.4 % (0.0-3.0); LYMPH # 1.4 10^3/uL (1.5-5.0); LYMPH % 38.3 % (24.0-44.0); MONO # 0.2 10^3/uL (0.0-0.8); MONO % 6.2 % (2.0-8.0); NEUTROPHILS # 1.9 10^3/uL (1.5-8.5); NEUTROPHILS % 52.1 % (36.0-66.0)
[2025-07-02 19:15] LABS: PLATELET COUNT, AUTOMATED 87 10^3/uL (150-450)
[2025-07-02 19:20] LABS: ALT/SGPT 18 U/L (7.0-40); AST/SGOT 23 U/L (<34); CALCIUM LEVEL 9.1 MG/DL (8.3-10.6); CARBON DIOXIDE LEVEL 30 MMOL/L (20-31); CHLORIDE LEVEL 102 MMOL/L (98-107); CHOLESTEROL LEVEL 115 MG/DL (<200); CHOLESTEROL RISK RATIO 3.05 (<5); CREATININE FOR GFR 0.71 MG/DL (0.55-1.30); GLOMERULAR FILTRATION RATE > 90.0 (>45); IRON (FE) 53 UG/DL (50-170); LDL CHOLESTEROL 57.4 MG/DL (<100); NON-HDL-C 77.4 MG/DL; POTASSIUM SERUM 3.8 MMOL/L (3.5-5.1); SODIUM LEVEL 142 MMOL/L (136-145); TRIGLYCERIDES LEVEL 100 MG/DL (<150)
[2025-07-02 19:36] LABS: ESTIMATED AVERAGE GLUCOSE 114.0 MG/DL (60-110)
== END ==
LOC: M SFHCLERA 12:14
PROVIDERS: ATTEND Student in an Organized Health Care Education/Training Program
DX: K74.60 Unspecified cirrhosis of liver (principal); Z86.2 Personal history of diseases of the blood and blood-forming organs and certain disorders involving the immune mechanism; E11.9 Type 2 diabetes mellitus without complications; E78.5 Hyperlipidemia, unspecified

== ENCOUNTER → 2025-07-10 | Outpatient (CLI) | payer MEDICARE, MEDICAID | LOC: M WHC 09:34 | PROVIDERS: ATTEND Student in an Organized Health Care Education/Training Program | DX: Z12.31 Encounter for screening mammogram for malignant neoplasm of breast (principal); R92.313 Mammographic fatty tissue density, bilateral breasts; Z13.820 Encounter for screening for osteoporosis; M79.622 Pain in left upper arm; K74.60 Unspecified cirrhosis of liver; E11.9 Type 2 diabetes mellitus without complications; E78.5 Hyperlipidemia, unspecified; Z86.2 Personal history of diseases of the blood and blood-forming organs and certain disorders involving the immune mechanism; M85.89 Other specified disorders of bone density and structure, multiple sites ==

== ENCOUNTER → 2025-07-10 | Outpatient (CLI) | payer MEDICARE, MEDICAID ==
[2025-07-10 13:56] LABS: BASO # 0.0 10^3/uL (0.0-0.2); BASO % 0.6 % (0.0-1.0); EOS # 0.1 10^3/uL (0.0-0.5); EOS % 2.5 % (0.0-3.0); LYMPH # 1.6 10^3/uL (1.5-5.0); LYMPH % 31.9 % (24.0-44.0); MONO # 0.5 10^3/uL (0.0-0.8); MONO % 10.2 % (2.0-8.0); NEUTROPHILS # 2.7 10^3/uL (1.5-8.5); NEUTROPHILS % 54.4 % (36.0-66.0); PLATELET COUNT, AUTOMATED 101 10^3/uL (150-450)
[2025-07-10 14:00] LABS: ALT/SGPT 19 U/L (7.0-40); AST/SGOT 26 U/L (<34); CALCIUM LEVEL 9.4 MG/DL (8.3-10.6); CARBON DIOXIDE LEVEL 29 MMOL/L (20-31); CHLORIDE LEVEL 99 MMOL/L (98-107); CHOLESTEROL LEVEL 116 MG/DL (<200); CHOLESTEROL RISK RATIO 3.00 (<5); CREATININE FOR GFR 0.63 MG/DL (0.55-1.30); ESTIMATED AVERAGE GLUCOSE 111.0 MG/DL (60-110); GLOMERULAR FILTRATION RATE > 90.0 (>45); IRON (FE) 62 UG/DL (50-170); LDL CHOLESTEROL 55.6 MG/DL (<100); NON-HDL-C 77.4 MG/DL; POTASSIUM SERUM 3.7 MMOL/L (3.5-5.1); SODIUM LEVEL 138 MMOL/L (136-145); TRIGLYCERIDES LEVEL 109 MG/DL (<150)
[2025-07-10 14:07] LABS: CREATININE, URINE 60.5 MG/DL
[2025-07-10 14:08] LABS: MALB URINE SIEMENS < 3.0 MG/L
== END ==
LOC: M PLAIMG 10:28
PROVIDERS: ATTEND Student in an Organized Health Care Education/Training Program
DX: M79.622 Pain in left upper arm (principal); K74.60 Unspecified cirrhosis of liver; E11.9 Type 2 diabetes mellitus without complications; E78.5 Hyperlipidemia, unspecified; Z86.2 Personal history of diseases of the blood and blood-forming organs and certain disorders involving the immune mechanism